=== PATIENT | female | born 1945 | race Caucasian/White ===

== ENCOUNTER 2020-10-24 12:41 | Inpatient (IN) | payer MEDICARE, SELFPAY ==
[2020-10-24] VITALS (14 sets, daily range): BP systolic 108–180; BP diastolic 52–111; PULSE 58–79; RESP 12–18; TEMP 36.4–37.6; O2SAT 95–100; BMI 24.8
--- NOTE | 2020-10-24 14:11 | ED.EXTPRO ---
HPI - Extremity Problem General Chief complaint: Extremity Problem,Nontraumatic Stated complaint: infection in knee. Dr Centeno sent you Time Seen by Provider: 10/24/20 14:08 Source: patient Mode of arrival: Wheelchair Limitations: no limitations History of Present Illness HPI Narrative: This is a 75-year-old female who is sent by Dr. Centeno for septic joint. Patient had aspiration on Tuesday, 2 days prior in the office and result came back positive. Asked for patient to be admitted under him. To hold on antibiotics until she is in the OR and she has washout and samples and he will initiate antibiotics. He does ask for initial labs, access and plan for OR today with patient NPO here in the department. Patient herself states she has had symptoms for several months she has had swelling, pain, no obvious redness that she is appreciated but does feel warm it time. She denies any fevers. She denies any other symptoms. Patient is allergic to Januvia. She states she has had several aspirations of her knee. She denies any chest pain, shortness of breath, no cold cough or congestion, no other GI or urinary symptoms. No numbness, tingling of her extremity. She does find that her knee is more painful when not elevated. Related Data Allergies Allergy/AdvReac Type Severity Reaction Status Date / Time sitagliptin [From Januvia] Allergy Verified 10/24/20 17:27 Review of Systems Review of Systems ROS Unobtainable: All systems reviewed & are unremarkable except as noted in HPI and below Patient History Medical History Acid reflux Diabetes Hyperlipidemia Hypertension Social History household members: spouse Smoking Status: Former smoker alcohol intake: current Smoking Status: Unknown if ever smoked alcohol intake frequency: holidays/special occasions only Substance Use Type: does not use Exam Narrative Exam Narrative: GENERAL: Alert and oriented x three, female in moderate distress. HEENT: Head normocephalic, atraumatic, EOMI, pupils reactive, face symmetric, moist mucous membranes NECK: Supple, full range of motion CARDIOVASCULAR: Regular rate and rhythm without murmurs, rubs or gallops. RESPIRATORY: Breath sounds equal bilaterally, no wheezes rales or rhonchi. ABDOMEN: Soft, nontender. Normoactive bowel sounds all 4 quadrants. No guarding or rebound, rigidity, no mass : No CVA tenderness EXTREMITIES: Decreased range of motion of right knee patient does not have any erythema but she does have swelling of the knee. She has some mild warmth. There is an effusion with swelling of her right knee. There is a healing scab where she had needle aspiration., no clubbing noted. Neurovascularly intact. Cap refill less than 2 seconds. Sensation intact. NEUROLOGICAL: Cranial nerves II through XII grossly intact. Moving all extremities SKIN: Warm, dry, no petechiae, no rashes or lesions. Initial Vital Signs Initial Vital Signs: Vital Signs Temperature 97.8 F 10/24/20 12:55 Pulse Rate 79 10/24/20 12:55 Respiratory Rate 14 10/24/20 12:55 Blood Pressure 131/62 10/24/20 12:55 Pulse Oximetry 97 10/24/20 12:55 Course Orders Ordered: ED Orders 10/24/20 13:11 C-Reactive Protein Quant Stat Complete Blood Count AUTO DIFF Stat Comprehensive Metabolic Panel Stat Erythrocyte Sedimentation Rate Stat Procalcitonin Stat Prothrombin Time INR Stat 10/24/20 14:29 EKG-12 Lead Stat Acetaminophen (Acetaminophen 325 Mg Tablet) 975 mg PO TID [facility] Last Admin: 10/24/20 21:17 Dose: 975 mg Documented by: ASHA Aspirin (Aspirin Ec 81 Mg Tablet) 81 mg PO BID [facility] Last Admin: 10/24/20 21:17 Dose: 81 mg Documented by: ASHA Bisacodyl (Bisacodyl 10 Mg Supp) 10 mg IA PRN PRN PRN Reason: Constipation Cefazolin Sodium (Cefazolin 1 Gm Vial) 2 gm IV Q8H [facility] Stop: 10/25/20 11:01 Lactated Ringer's (Lactated Ringers) 1,000 mls @ 125 mls/hr IV CONT [facility] Last Admin: 10/24/20 21:17 Dose: 125 mls/hr Documented by: ASHA Insulin Human Lispro (Insulin Lispro 100 Unit/Ml 3ml Vial) 0 unit SUBCUT Q6HR [facility]; Protocol Naloxone HCl (Naloxone 0.4 Mg/Ml Vial) 0.2 mg IV Q2MIN PRN PRN Reason: Opiate Reversal Ondansetron HCl (Ondansetron 4 Mg Odt) 4 mg PO Q4HR PRN PRN Reason: Nausea And Vomiting Oxycodone HCl (Oxycodone Ir 5 Mg Tablet) 5 mg PO Q3HR PRN PRN Reason: Pain, Moderate (4-6) Polyethylene Glycol (Polyethylene Glycol 3350 17 Gm Powd.Pack) 17 gm PO DAILY KEHINDE Discontinued Medications Acetaminophen (Acetaminophen 325 Mg Tablet) 975 mg PO NOW ONE Stop: 10/24/20 14:51 Last Admin: 10/24/20 14:59 Dose: 975 mg Documented by: FABIANO Bupivacaine HCl/Epinephrine Bitart (Bupivacaine 0.25% W/ Epi 30 Ml Vial) 30 ml INJ NOW ONE Stop: 10/24/20 19:09 Last Admin: 10/24/20 19:00 Dose: 4 ml Documented by: RUI Cefazolin Sodium (Cefazolin 1 Gm Vial) 2 gm IV NOW ONE Stop: 10/24/20 18:37 Last Admin: 10/24/20 18:25 Dose: 2 gm Documented by: LIZBETH Sodium Chloride (Normal Saline 0.9%) 1,000 mls @ 150 mls/hr IV CONT [facility] Last Infusion: 10/24/20 19:50 Dose: 0 mls/hr Documented by: Admin: 10/24/20 15:00 Dose: 150 mls/hr Documented by: FABIANO Lactated Ringer's (Lactated Ringers) 1,000 mls @ 42 mls/hr IV CONT [facility] Last Admin: 10/24/20 17:03 Dose: 42 mls/hr Documented by: SAYDA Vancomycin HCl (Vancomycin) 1,000 mg in 200 mls @ 200 mls/hr IV NOW ONE Stop: 10/24/20 18:44 Last Infusion: 10/24/20 19:51 Dose: 0 mls/hr Documented by: Admin: 10/24/20 18:24 Dose: 200 mls/hr Documented by: YARED Vancomycin HCl (Vancomycin) 1,000 mg in 200 mls @ 200 mls/hr IV Q12H [facility] Stop: 10/24/20 21:17 Last Admin: 10/24/20 21:17 Dose: 200 mls/hr Documented by: ASHA Oxycodone HCl (Oxycodone Ir 5 Mg Tablet) 5 mg PO NOW ONE Stop: 10/24/20 19:35 Last Admin: 10/24/20 19:44 Dose: 5 mg Documented by: GRANT Lepe Consultation #1: Dr. Centeno, called and informed me that patient was sent to the emergency department with plan for admission to himself for septic joint he asked that we do not start antibiotics until she is in the and OR. NPO with plan for admission inpatient under Dr. Centeno. Vital Signs Vital signs: Vital Signs - 8 hr 10/24/20 12:55 Temperature 97.8 F Pulse Rate 79 Respiratory Rate 14 Blood Pressure 131/62 Pulse Oximetry 97 MDM - Extremity (Nontraumatic) Lab Data Result diagrams: 10/24/20 13:11 10/24/20 13:11 Labs: Lab Results 10/24/20 10/24/20 10/24/20 Range/Units 13:11 13:11 13:11 WBC 12.8 H (4.5-11.0) X10^3/uL RBC 3.76 L (4.0-5.2) X10^6/uL Hgb 10.6 L (12.0-16.0) g/dL Hct 32.8 L (36-46) % MCV 87.2 (80-100) fL MCH 28.2 (26-34) PG MCHC 32.3 (30-36) % RDW 13.5 (11.6-14.8) % Plt Count 653 H (150-400) X10^3/uL Neut % (Auto) 75.4 H (50-75) % Lymph % (Auto) 16.4 L (25-40) % [place] % (Auto) 7.4 (3-14) % Eos % (Auto) 0.3 L (2-4) % Baso % (Auto) 0.5 (0-2) % Neut # (Auto) 9700 H (9653-8486) /uL Lymph # (Auto) 2100 (7956-4521) /uL [place] # (Auto) 1000 H (0-900) /uL Eos # (Auto) 0 (0-450) /uL Baso # (Auto) 100 (0-100) /uL ESR 112 H (0-20) MM/HR PT 12.0 (10.1-12.7) SECONDS INR 1.1 (0.9-1.3) Sodium 136 L (137-145) mmol/L Potassium 4.9 (3.4-5.1) mmol/L Chloride 100 (98-107) mmol/L Carbon Dioxide 26 (22-32) mmol/L BUN 30 H (7-17) mg/dL Creatinine 1.12 H (0.52-1.04) mg/dL Estimated GFR 47.2 L (>60) mL/min BUN/Creatinine Ratio 26.8 H (6-22) Glucose 208 H (80-110) mg/dL Calcium 10.4 H (8.4-10.2) mg/dL Total Bilirubin 0.4 (0.2-1.3) mg/dL AST 19 (14-36) IU/L ALT 14 (<35) IU/L Alkaline Phosphatase 88 (38-126) U/L C-Reactive Protein 11.8 H (<1.0) mg/dL Total Protein 7.6 (6.3-8.2) g/dL Albumin 3.9 (3.5-5.0) g/dL Globulin 3.7 (1.7-4.1) g/dL Albumin/Globulin Ratio 1.1 (1.0-2.8) Procalcitonin 0.09 (<0.5) ng/mL ECG Data Attestation EKG: I personally reviewed and interpreted this ECG as follows: Prior ECG tracings: not available for review Interpretation: Sinus rhythm inversion in 2 3 AVF with elevation in V1 through V3. No priors for comparison. Rate of 70 IA 164 QRS of 136 and QTC 440. MDM Narrative Medical decision making narrative: This is a 75-year-old female sent to the emergency department in the setting of chronic swelling and pain in her right knee with positive aspiration by Dr. Centeno as an outpatient patient had screening EKG which does show T-wave changes but patient is asymptomatic with no priors for comparison. Patient's does show changes consistent with septic arthritis with elevation of CRP and ESR. Patient has a slightly elevated creatinine. She request Tylenol here for pain. She is febrile does not appear septic. Antibiotics were deferred until she been in the OR for cultures as per Dr. Centeno for washout. She is NPO at this time. Discharge Plan Departure Patient Disposition: Admitted As Inpatient Clinical Impression: Septic joint Qualifiers: Septic arthritis location: knee Admit Date/Time: 10/24/20 14:35 Admit Provider: Wade Centeno
[2020-10-24] MEDS: ACETAMINOPHEN 325 MG TABLET 975 MG PO ×2 (14:59→21:17)
[2020-10-24] MEDS: SODIUM CHLORIDE 0.9% 1,000 ML 150 ML IV (15:00)
--- NOTE | 2020-10-24 15:15 | PC.NURSE ---
Notified pt of NPO status, understanding verbalized.
[2020-10-24 15:20] LABS: Add Manual Diff / Slide Review NO; Basophils Absolute Auto 100 /uL (0-100); Basophils Percent Auto 0.5 % (0-2); Eosinophils Absolute Auto 0 /uL (0-450); Eosinophils Percent Auto 0.3 % (2-4); Hematocrit 32.8 % (36-46); Hemoglobin 10.6 g/dL (12.0-16.0); Lymphocytes Absolute Auto 2100 /uL (1100-4500); Lymphocytes Percent Auto 16.4 % (25-40); Mean Corpuscular HGB Conc 32.3 % (30-36); Mean Corpuscular Hemoglobin 28.2 PG (26-34); Mean Corpuscular Volume 87.2 fL (80-100); Monocytes Absolute Auto 1000 /uL (0-900); Monocytes Percent Auto 7.4 % (3-14); Neutrophils Absolute Auto 9700 /uL (1500-7000); Neutrophils Percent Auto 75.4 % (50-75); Platelet Count 653 X10^3/uL (150-400); Red Blood Cell Count 3.76 X10^6/uL (4.0-5.2); Red Cell Distribution Width 13.5 % (11.6-14.8); White Blood Cell Count 12.8 X10^3/uL (4.5-11.0)
[2020-10-24 15:28] LABS: INR 1.1 (0.9-1.3)
[2020-10-24 15:39] LABS: Alanine Aminotransferase 14 IU/L (<35); Albumin 3.9 g/dL (3.5-5.0); Albumin Globulin Ratio 1.1 (1.0-2.8); Alkaline Phosphatase 88 U/L (38-126); Aspartate Aminotransferase 19 IU/L (14-36); BUN Creatinine Ratio 26.8 (6-22); Bilirubin Total 0.4 mg/dL (0.2-1.3); Blood Urea Nitrogen 30 mg/dL (7-17); Calcium 10.4 mg/dL (8.4-10.2); Carbon Dioxide 26 mmol/L (22-32); Chloride 100 mmol/L (98-107); Estimated Glomerular Filt Rate 47.2 mL/min (>60); Globulin 3.7 g/dL (1.7-4.1); Glucose 208 mg/dL (80-110); HEMOLYSIS < 15 (0-50); Potassium 4.9 mmol/L (3.4-5.1); Sodium 136 mmol/L (137-145); Total Protein 7.6 g/dL (6.3-8.2)
[2020-10-24 15:45] LABS: Erythrocyte Sedimentation Rate 112 MM/HR (0-20)
[2020-10-24 15:49] LABS: C-Reactive Protein Quant 11.8 mg/dL (<1.0)
[2020-10-24 15:51] LABS: Procalcitonin 0.09 ng/mL (<0.5)
[2020-10-24 16:03] LABS: COVID19 -Nasal RAPID Negative (Negative)
--- NOTE | 2020-10-24 16:07 | PC.NURSE ---
Transfer to PACU to await for surgery
[2020-10-24] MEDS: LACTATED RINGERS 1,000 ML 42 ML IV (17:03)
--- NOTE | 2020-10-24 17:11 | PM.HP.1 ---
History of Present Illness History of Present Illness Date Patient Seen: 10/24/20 Time Patient Seen: 17:11 Date of Onset of Symptoms: 10/16/20 Chief complaint: infection in knee. Dr Alba sent you Narrative: Patient is a 65-year-old female who has had intermittent right knee pain since April. She has had several ER visits since that time. Previous aspirations of the knee did not demonstrate any infection. She has had about 5 aspiration since initially having knee pain back in April. Last week I provided a Orthovisc injection she had worsening pain at the visit on Tuesday. I aspirated her right knee and send it for Synovasure analysis. This returned today showing staph infection. I called this morning to learn presented on Hospital ER for irrigation debridement of right septic knee. Patient History Family & Social History Social History: household members spouse Safety & Behavioral: Feels Safe in Current Yes Environment Been Physically Hurt or No Threatened By a Person Tobacco & Substance use: Smoking Status Former smoker alcohol intake frequency holiday/special occasion Substance Use Type does not use Meds Home Medications and Allergies Allergies Allergy/AdvReac Type Severity Reaction Status Date / Time sitagliptin [From Januvia] Allergy Verified 10/24/20 12:54 Exam Vital Signs (past 8 hours): - 10/24/20 12:55 10/24/20 15:41 10/24/20 16:57 Temperature 97.8 F 98.2 F 99.6 F Pulse Rate 79 63 66 Respiratory Rate 14 16 16 Blood Pressure 131/62 139/67 140/60 Pulse Oximetry 97 100 99 Oxygen Delivery Method Room Air Narrative Exam Narrative: Right knee large effusion. Range of motion 5? short of full extension to 90? of flexion. Painful range of motion. No erythema or drainage. Objective Labs Result Diagrams: 10/24/20 13:11 10/24/20 13:11 Labs: Laboratory Results - last 24 hr 10/24/20 10/24/20 10/24/20 13:11 13:11 13:11 WBC 12.8 H RBC 3.76 L Hgb 10.6 L Hct 32.8 L MCV 87.2 MCH 28.2 MCHC 32.3 RDW 13.5 Plt Count 653 H Neut % (Auto) 75.4 H Lymph % (Auto) 16.4 L [place] % (Auto) 7.4 Eos % (Auto) 0.3 L Baso % (Auto) 0.5 Neut # (Auto) 9700 H Lymph # (Auto) 2100 [place] # (Auto) 1000 H Eos # (Auto) 0 Baso # (Auto) 100 ESR 112 H PT 12.0 INR 1.1 Sodium 136 L Potassium 4.9 Chloride 100 Carbon Dioxide 26 BUN 30 H Creatinine 1.12 H Estimated GFR 47.2 L BUN/Creatinine Ratio 26.8 H Glucose 208 H Calcium 10.4 H Total Bilirubin 0.4 AST 19 ALT 14 Alkaline Phosphatase 88 C-Reactive Protein 11.8 H Total Protein 7.6 Albumin 3.9 Globulin 3.7 Albumin/Globulin Ratio 1.1 Procalcitonin 0.09 SARS-CoV-2 (PCR) 10/24/20 14:55 WBC RBC Hgb Hct MCV MCH MCHC RDW Plt Count Neut % (Auto) Lymph % (Auto) [place] % (Auto) Eos % (Auto) Baso % (Auto) Neut # (Auto) Lymph # (Auto) [place] # (Auto) Eos # (Auto) Baso # (Auto) ESR PT INR Sodium Potassium Chloride Carbon Dioxide BUN Creatinine Estimated GFR BUN/Creatinine Ratio Glucose Calcium Total Bilirubin AST ALT Alkaline Phosphatase C-Reactive Protein Total Protein Albumin Globulin Albumin/Globulin Ratio Procalcitonin SARS-CoV-2 (PCR) Negative Assessment & Plan Assessment & Plan narrative: Patient is a 75-year-old female with right knee septic arthritis. This was confirmed by Synovasure aspiration. I called this morning told to present to an Hospital ER. She is here today for arthroscopic irrigation debridement of her right knee with possible open irrigation debridement. Plan will be for washout in the OR followed by placement of Hemovac drain and broad-spectrum antibiotics until susceptibilities are known. Need 6 weeks of IV antibiotics. -OCTOR -nonweightbearing right lower extremity -hold antibiotics
--- NOTE | 2020-10-24 17:28 | SUR.HOLD ---
PT DOES NOT KNOW NAMES OF MEDS - GLIPIZDE, LANTUS, OMEPRIZOLE, ATORVASTATIN, LOSARTAN BABY ASPIRIN,MVI,
--- NOTE | 2020-10-24 17:38 | SUR.HOLD ---
LANTUS OMEPRAZOLE GLIPIZIDE LOSARTAN HYPERLIPIDEMIA ATORVASTATIN
--- NOTE | 2020-10-24 17:41 | SUR.HOLD ---
BELONGINGS IN BAG AND WEDDING RINGS SECURED WITH BAND-AIDS
--- NOTE | 2020-10-24 17:48 | SUR.HOLD ---
arrives and takes wedding set.
[2020-10-24] MEDS: VANCOMYCIN 1,000 MG/200 ML PIGGYBACK 200 MG IV ×2 (18:24→21:17)
[2020-10-24] MEDS: CEFAZOLIN 1 GM VIAL 2 GM IV (18:25)
--- NOTE | 2020-10-24 18:29 | SUR.OPER ---
Supine on padded OR bed, head on pillow, arms secured on padded arm boards at <90 degrees abduction, legs uncrossed, right leg is in lateral brace and under control of surgeon,safety belt at pelvis, tape over blanket over left lower leg.
[2020-10-24] MEDS: BUPIVACAINE 0.25% W/ EPI 30 ML VIAL INJ (19:00)
--- NOTE | 2020-10-24 19:13 | PM.OP.1 ---
Operative Date/Time/Diagnoses Date of procedure: 10/24/20 Time of procedure: 19:13 Pre-op diagnosis: septic arthritis right knee Post-op diagnosis: same Procedure & Clinicians Procedure: Arthroscopic irrigation debridement right knee Same procedure as scheduled: Yes Indications: Septic arthritis Surgeon: Wade Alba Click Yes if Unassisted: Yes Anesthesia Type: General Operative Notes Findings: Synovitis and cloudy synovial fluid Closure Type: primary Specimen(s): other (2x cultures) Estimated Blood Loss (mL): 20 Tourniquet time (min): 35 Procedure in detail: Patient was met in the preoperative holding area where the site and side of surgery marked by . She had been seen in clinic 2 days prior there was concern for septic arthritis right knee was aspirated sent for Synovasure analysis this came back concerning for staphylococcal infection. She was told to present on Hospital ER. She was met through the ER. I reviewed informed consent with around preoperative holding area including the risks and benefits of surgery. After informed consent patient signed the consent. Patient was then brought back to operating room where she was induced under general anesthesia. A nonsterile tourniquet was then placed in the right thigh the right lower extremity then prepped and draped normal sterile fashion. The right knee was aspirated and this aspiration was sent for culture as well as antibiotic sensitivities. At this point antibiotics were started which was 2 g Ancef 1 g of vancomycin. Once Ancef was completely infused the right lower extremity tourniquet was then inflated without using the Esmarch. A standard anterolateral portal was then made and a diagnostic arthroscopy was performed verifying significant synovitis and cloudy synovial fluid. A anteromedial portal was then placed and a arthroscopic shaver was placed through this portal and synovectomy was then performed. A repeat diagnostic arthroscopy was then performed followed by washing of the joint with 9 L of normal saline in total without any further cloudy synovial fluid encountered. Once this was completed the instruments were removed from the joint. A Hemovac drain was then placed. Portal sites were then closed with nylon followed by Webril followed by a Yossi bandage. Complications: none Post-operative Condition: stable Disposition: PACU Plan for aftercare: Broad-spectrum IV antibiotics until bacterial sensitivities are completed, nonweightbearing right lower extremity until drain is removed, aspirin 81 mg b.i.d. until mobilizing.
[2020-10-24] MEDS: OXYCODONE IR 5 MG TABLET PO ×2 (19:44→23:08)
--- NOTE | 2020-10-24 20:06 | SUR.PHASEI ---
REPORT GIVEN TO CALLIE HAYNES BY PHONE, ALL QUESTIONS ANSWERED TO SATISFACTION. PATIENT BROUGHT UP TO RM 204 WITH ALL BELONGINGS. BED DOWN IN LOCKED POSITION. SCD'S ON. CALL LIGHT IN REACH. CALLIE HAYNES ARRIVED AT BEDSIDE FOR FACE TO FACE HANDOFF, AFTER CHECKING DRSG, HV, CMS AND VS TOGETHER.
[2020-10-24 21:11] LABS: C-Reactive Protein Quant 12.1 mg/dL (<1.0)
[2020-10-24] MEDS: LACTATED RINGERS 1,000 ML 125 ML IV (21:17)
[2020-10-24] MEDS: ASPIRIN EC 81 MG TABLET PO (21:17)
--- NOTE | 2020-10-24 22:28 | PC.ADMIT ---
[address] [place] [address] Admission Note: Patient admitted to floor from PACU at 20:00 transferred by bed. Patient alert and oriented, able to make her needs known. Patient oriented to room and shown how to use call light. Brakes on bed are locked. The patient,Penny Babin,75 y/o, was given written information regarding hospital policies, unit procedures and contact persons. Patient's smoking status: Former smoker. Vital Signs - 8 hr 10/24/20 15:41 10/24/20 16:57 10/24/20 19:08 Temperature 98.2 F 99.6 F 98.1 F Pulse Rate 63 66 65 Respiratory Rate 16 16 12 Blood Pressure 139/67 140/60 167/53 H Pulse Oximetry 100 99 100 10/24/20 19:13 10/24/20 19:18 10/24/20 19:23 Temperature Pulse Rate 64 66 60 Respiratory Rate 14 14 18 Blood Pressure 108/67 158/64 H 174/59 H Pulse Oximetry 98 98 99 10/24/20 19:38 10/24/20 19:49 10/24/20 20:00 Temperature 98.7 F 97.6 F Pulse Rate 64 58 L 64 Respiratory Rate 16 16 13 Blood Pressure 149/111 H 180/52 H 178/68 H Pulse Oximetry 99 98 98 10/24/20 20:30 10/24/20 21:00 Temperature 98.0 F 97.5 F L Pulse Rate 70 65 Respiratory Rate 15 14 Blood Pressure 130/63 145/59 H Pulse Oximetry 95 95
[2020-10-24 22:42] LABS: COVID19 - ADMIT (NP swab/PCR) Negative (Negative)
[2020-10-25] VITALS (12 sets, daily range): BP systolic 114–179; BP diastolic 48–67; PULSE 64–74; RESP 14–18; TEMP 36.1–36.6; O2SAT 95–98
--- NOTE | 2020-10-25 01:33 | PC.NURSE ---
Patient reports taking home medications but cannot recall names or doses with reasonable confidence. This RN requested a list of medication be brought in at family's convenience.
[2020-10-25] MEDS: CEFAZOLIN 1 GM VIAL 2 GM IV ×2 (03:08→11:44)
[2020-10-25] MEDS: OXYCODONE IR 5 MG TABLET PO ×5 (03:19→19:56)
[2020-10-25] MEDS: LACTATED RINGERS 1,000 ML 125 ML IV (06:38)
[2020-10-25 06:53] LABS: Hematocrit 28.8 % (36-46); Hemoglobin 9.6 g/dL (12.0-16.0); Mean Corpuscular HGB Conc 33.5 % (30-36); Mean Corpuscular Hemoglobin 29.4 PG (26-34); Mean Corpuscular Volume 87.8 fL (80-100); Platelet Count 581 X10^3/uL (150-400); Red Blood Cell Count 3.28 X10^6/uL (4.0-5.2); Red Cell Distribution Width 13.8 % (11.6-14.8); White Blood Cell Count 10.2 X10^3/uL (4.5-11.0)
[2020-10-25] MEDS: ACETAMINOPHEN 325 MG TABLET 975 MG PO ×3 (08:57→20:56)
[2020-10-25] MEDS: polyethylene glycoL 3350 17 GM POWD.PACK PO (08:57)
[2020-10-25] MEDS: INSULIN LISPRO 100 UNIT/ML 3ML VIAL SUBCUT ×4 (09:00→21:06)
[2020-10-25] MEDS: ASPIRIN EC 81 MG TABLET PO ×2 (09:00→20:56)
--- NOTE | 2020-10-25 09:25 | CM.DANOTE ---
Addendum entered by Vanessa Poole R.N. 10/25/20 13:37: Confirmed primary care provider is Nai Godwin, physician diagnostic assistant at [facility]. Called [facility] and spoke to Haydee about referral. Faxed over face sheet, face to face, H&P. Addendum entered by Vanessa Poole R.N. 10/25/20 13:16: Faxed referral over to [facility], IV medication is not yet known. Brought in a Medicare Choice List and discussed home health agencies. They stated, [facility] may be the best, they are based in [place]. They are also listed on the calender for this week. Mentioned that home health can include home therapy, and weekly nursing visits for PICC dressing changes, and labs if needed. Will go ahead and fax [facility] over the referral as well. Have face to face already signed by ortho. Addendum entered by Vanessa Poole R.N. 10/25/20 12:13: Spoke to aamdor Rubalcava MD, who confirmed that patient will need to be on IV medications for 6 weeks. He indicated that patient would most likely want to go home, versus going to skilled rehab. Checked in with patient and , Kishor. Discussed options of going home with [facility] and home health, including nursing for weekly dressing changes for PICC line, and home therapy. Patient and , feel that they can manage the home IVs as long as they are taught. Let patient and know that [facility] would do the teach back, either here in the hospital, or the home setting. Per Dr. Alba, it is still unclear as to what patient will be on, secondary to awaiting cultures. Let her and patient know that [facility] would be running this by insurance to see what their co-payment is. May attempt to get in touch with [facility] today. Original Note: DCP: Case received, EMR reviewed and met with patient. Introduced self and role. Was able to obtain information from patient her baseline activity status prior to her surgery. DCP assessment completed with information currently available. Patient is a 75 year old female who admitted yesterday afternoon to the care of the orthopedic team. Ortho: Dr. Alba. Payer: confirmed: [employer] Medicare. Patient came to the hospital for a surgical procedure. She was sent by the orthopedic office after an aspiration of her knee was done on Tuesday. She had knee surgery some months ago, and is here for arthroscopic irrigation and debridement of her right knee. She had this procedure done yesterday, secondary to infection. Met with patient in her room. She was sitting up in bed, pleasant, having her breakfast. She is alert and oriented. Her and her spouse, Kishor, reside in [place]. Patient indicated that she had her knee surgery months ago, and had been developing some swelling and pain. She has a walker for home use, has not been driving. She also indicated, her is very supportive, has been helping with meals. She also indicated that she has a neighbor that she may ask to help with some hand icer as well. P: DCP to continue to follow for any needs. Will see how she does with the therapy team, and will assess if patient will need to be on an extended time of IV ABO. Vanessa Poole RN/Manager Performance Improvement
--- NOTE | 2020-10-25 09:48 | PT.IIE ---
Current Diagnoses Arthritis due to other bacteria, right knee (10/24/20) Surgery Performed Operation Date: 10/24/20 17:30 Actual Procedures p Arthroscopy I&D of Knee(Right) - Wade Alba MD Medical History (Last Reviewed 10/28/20 @ 07:26 by Sisi Antoine PA-C) Acid reflux Diabetes Hyperlipidemia Hypertension Physical Therapy Inpatient Evaluation/Re-Eval M1 PT/OT-IP Prior Functional Status Start: 10/25/20 12:21 Freq: NEEDED Status: Active Protocol: Document 10/28/20 08:00 AB (Rec: 10/25/20 12:42 AB [id number]) Medical Review Prior Functional Status Medical History Reviewed Yes Communication able to make needs known Mobility and Gait pt stated that she is independent with all mobilities and ambulation without AD Social History Household Members spouse Living Arrangements House Number of Floors (Floors) One Floor Number of Stairs To Enter/Railing? 4 steps L rail to enter from the garage 5 steps B rails from the back deck 6 steps 1 rail from the front Home Environment Standard Height Toilet,Walk in Shower,Tub/Shower Home Equipment Grab Bars In Shower Additional Social History Comment pt stated that she has been sleeping on a recliner for ~ 1 week due to knee pain M2 PT-IP Current Condition Start: 10/25/20 12:21 Freq: NEEDED Status: Active Protocol: Document 10/28/20 08:00 AB (Rec: 10/25/20 12:42 AB [email or web address]) Physical Therapy Current Condition Current Condition Evaluation Date 10/25/20 Treatment Diagnosis R knee sepsis s/p irrigation debridement; difficulty in walking Onset Date 10/24/20 Weight Bearing Status Weight Bearing Status Non-Weight Bearing Allowed Weight Bearing Amount (enter % RLE NWB or #) (%) M3 PT-IP Subjective Start: 10/25/20 12:21 Freq: NEEDED Status: Active Protocol: Document 10/28/20 08:00 AB (Rec: 10/25/20 12:42 AB [id number]) Subjective Physical Therapy Visit Type Type Initial Evaluation Visit Start Time 09:48 Visit Stop Time 10:22 Total Visit Minutes 35 Number of MANAGER SAS Visits 0 Physical Therapy Visit Comments Patient Comments pt is agreeable to do PT Therapy Pain Assessment Pain When Pain Assessed At Rest Pain Present Pain Present Pain Reported Location Right Knee Intensity 8 Scale Used Numeric (0 - 10) Pain Behaviors Facial Grimacing,Guarding, Holding Area,Moaning,Wincing Pain Management Techniques Distraction,Modification of Treatment,Re-positioning, Timing of Activity with Medications M4 PT-IP Mobility and Gait Start: 10/25/20 12:21 Freq: NEEDED Status: Active Protocol: Document 10/28/20 08:00 AB (Rec: 10/25/20 12:42 AB [id number]) PT-Bed Mobility Assessment Supine to Sit Supine to Sit Standby Assistance,Head of Bed Elevated Sit to Supine Sit to Supine Standby Assistance,Head of Bed Elevated PT-Transfer Assessment Sit to and From Stand Sit to and from Stand Contact Guard Assistance, Minimal Assistance,1 Person Assistance,Use of Upper Extremities Equipment Transfer Assistive Device Gait Belt,Front Wheeled Walker Orthotic/Prosthetic Devices or Brace: No Transfers Transfer Destination Bedside Commode Transfer Technique Stand Step Pivot Transfer Ability Level of Assist Contact Guard Assistance, Minimal Assistance,1 Person Assistance,Use of Upper Extremities Comments Mobility Comments pt supine in bed and requesting to use the toilet. informed pt regarding NWB RLE and understood. pt completed supine to sit HOB elevated SBA. pt was able to sit on EOB SBA. increase RLE guarding. pt complete sit to stand min A and cues and completed step transfer to bedside commode using FWW min A. pt completed sit to stand from the bedside commode CGA and step transfer to EOB CGA. c/o increase RLE pain but agreed to do ambulation. completed sit to stand from EOB CGA to min A and ambualted ~ 10 ft using FWW CGA to Abbi . min A towards end of ambulation with c/o fatigue. pt is able to maintain NWB on RLE. completed sit to supine SBA with HOB elevated. positioned pt in bed. call light and table placed within reach. Gait Assessment Gait Gait Assistance Required: Contact Guard Assist,Minimum Assistance Distance (Feet) 10 Able to Maintain Weight Bearing Status Yes During Gait Assistive Devices Assistive Device Gait Belt,Front Wheeled Walker Orthotic/Prosthetic Devices or Brace: No Factors Limiting Gait Function Factors Limiting Gait Function Decreased Activity Tolerance, Decreased Strength,Limited Range of Motion,Pain,Poor Balance Comments Gait Comments pls refer to mobility section for details PT-Balance Assessment Sitting Balance and Reactions Static Sitting Balance Ability Good Dynamic Sitting Balance Ability Good Standing Balance and Reactions Static Standing Balance Ability Fair Dynamic Standing Balance Ability Fair Device Used FWW M5 PT-IP Objective Assessments Start: 10/25/20 12:21 Freq: NEEDED Status: Active Protocol: Document 10/28/20 08:00 AB (Rec: 10/25/20 12:42 AB [id number]) Orientation Orientation/Cognition Level of Alertness Alert Orientation Name,Place,Situation Language Function Ability Hard of Hearing Safety Awareness Understands Safety Issues Memory Description No Deficits Noted Gross Range of Motion Lower Extremity ROM Assessment Right Impaired Impairments pain limiting movement Strength Lower Extremity Strength Assessment Right Impaired Comments Strength Comments pain limiting mobility on RLE Sensation Assessment Sensation Gross Sensation WNL Muscle Tone Muscle Tone WNL Yes M6 PT-IP Treatment Start: 10/25/20 12:21 Freq: NEEDED Status: Active Protocol: Document 10/28/20 08:00 AB (Rec: 10/25/20 12:42 AB [id number]) Physical Therapy Treatment Education Education Provided Weight Bearing Status,Safety M7 PT-IP Assessment and Plan Start: 10/25/20 12:21 Freq: NEEDED Status: Active Protocol: Document 10/28/20 08:00 AB (Rec: 10/25/20 12:42 AB [id number]) PT Summary Assessment and Plan Potential Rehabilitation Potential Good Status of Condition at Evaluation Evolving Summary Impairments Pain,ROM,Strength,Balance, Coordination,Sensation,Bed Mobility,Transfers,Gait, Activity Tolerance Assessment Summary pt requiring CGA to min A with mobility using FWW but with c /o increase knee pain and has decrease activity tolerance affecting independence. informed pt regarding DME needs ( FWW, shower chair, grab bars, w/c) and a ramp to enter the house. pt stated that she is going to ask her spouse. will continue to assess progress for safe d/c plan. Goals Bed Mobility Goal Independent Transfer Goal Independent,Front Wheeled Walker Gait Goal Independent,Front Wheel Walker Gait Distance 50 Other Goals up/down 5 steps B rails CGA Days to Meet Goals 10 Frequency of Treatment Frequency Of Treatment Once a Day Treatment Plan Physical Therapy Treatment Plan Bed Mobility Training,Transfer Training,Gait Training, Therapeutic Exercise,Balance Retraining,Post Op Education, Discharge Planning,Hot or Cold Pack,Neuromuscular Re-ed, Coordination Retraining,Manual Therapy Precautions Other Precautions NWB RLE Recommendations To Nursing Amount of Assist Needed 1 Person Assist Discharge Recommendations PT Discharge Recommendations Home with Assistance,Home Health,SNF Rehab,Home vs SNF Equipment Needed for Home Before FWW Discharge Transportation Needs at Discharge Private Vehicle,Wheelchair/ Cabulance
--- NOTE | 2020-10-25 10:06 | P.PN_ITS ---
Subjective Subjective Date Patient Seen: 10/25/20 Time Patient Seen: 10:06 Interval history: Patient states she is doing well overall but is in moderate discomfort at rest. At this time patient denies fever, chills, nausea, chest pain, shortness of breath, or urinary retention. She reports good sensation throughout the bilateral lower extremities. She does note that she has pain primarily around the right knee, but notes that she also has tenderness in the proximal of her right leg. Exam Vital Signs (past 8 hours): - 10/25/20 06:00 10/25/20 08:00 Temperature 97.0 F L 98 F Pulse Rate 69 64 Respiratory Rate 16 16 Blood Pressure 141/62 H 135/56 L Pulse Oximetry 96 95 Oxygen Delivery Method Room Air Oxygen Flow Rate 0 Narrative Exam Narrative: 75-year-old female postop day 1 status post right arthroscopic irrigation and debridement of septic knee joint. Patient is resting comfortably in bed, is in no acute distress, is alert and oriented x3. Skin is warm, dry, and pink. Wound drain in place draining scant amount of red blood. Good sensation appreciated throughout the bilateral lower extremities light touch. Tenderness to palpation throughout the right proximal thigh extending distally to the proximal 1st half of the right leg. Gross motor function intact thr oughout the bilateral lower extremities. Const General: cooperative, healthy appearing and comfortable Resp Effort & Inspection: normal respiratory effort and able to speak in complete sentences Skin General: no rashes or lesions noted Objective Labs Result Diagrams: 10/25/20 06:40 10/24/20 13:11 Labs: Laboratory Results - last 24 hr 10/24/20 10/24/20 10/24/20 13:11 13:11 13:11 WBC 12.8 H RBC 3.76 L Hgb 10.6 L Hct 32.8 L MCV 87.2 MCH 28.2 MCHC 32.3 RDW 13.5 Plt Count 653 H Neut % (Auto) 75.4 H Lymph % (Auto) 16.4 L [place] % (Auto) 7.4 Eos % (Auto) 0.3 L Baso % (Auto) 0.5 Neut # (Auto) 9700 H Lymph # (Auto) 2100 [place] # (Auto) 1000 H Eos # (Auto) 0 Baso # (Auto) 100 ESR 112 H PT 12.0 INR 1.1 Sodium 136 L Potassium 4.9 Chloride 100 Carbon Dioxide 26 BUN 30 H Creatinine 1.12 H Estimated GFR 47.2 L BUN/Creatinine Ratio 26.8 H Glucose 208 H Calcium 10.4 H Total Bilirubin 0.4 AST 19 ALT 14 Alkaline Phosphatase 88 C-Reactive Protein 11.8 H Total Protein 7.6 Albumin 3.9 Globulin 3.7 Albumin/Globulin Ratio 1.1 Procalcitonin 0.09 SARS-CoV-2 (PCR) 10/24/20 10/24/20 10/24/20 14:55 20:40 21:44 WBC RBC Hgb Hct MCV MCH MCHC RDW Plt Count Neut % (Auto) Lymph % (Auto) [place] % (Auto) Eos % (Auto) Baso % (Auto) Neut # (Auto) Lymph # (Auto) [place] # (Auto) Eos # (Auto) Baso # (Auto) ESR PT INR Sodium Potassium Chloride Carbon Dioxide BUN Creatinine Estimated GFR BUN/Creatinine Ratio Glucose Calcium Total Bilirubin AST ALT Alkaline Phosphatase C-Reactive Protein 12.1 H Total Protein Albumin Globulin Albumin/Globulin Ratio Procalcitonin SARS-CoV-2 (PCR) Negative Negative 10/25/20 06:40 WBC 10.2 RBC 3.28 L Hgb 9.6 L Hct 28.8 L MCV 87.8 MCH 29.4 MCHC 33.5 RDW 13.8 Plt Count 581 H Neut % (Auto) Lymph % (Auto) [place] % (Auto) Eos % (Auto) Baso % (Auto) Neut # (Auto) Lymph # (Auto) [place] # (Auto) Eos # (Auto) Baso # (Auto) ESR PT INR Sodium Potassium Chloride Carbon Dioxide BUN Creatinine Estimated GFR BUN/Creatinine Ratio Glucose Calcium Total Bilirubin AST ALT Alkaline Phosphatase C-Reactive Protein Total Protein Albumin Globulin Albumin/Globulin Ratio Procalcitonin SARS-CoV-2 (PCR) [facility] Medical History Acid reflux Diabetes Hyperlipidemia Hypertension Social History household members: spouse Smoking Status: Former smoker alcohol intake: current Assessment & Plan Post-op Postoperative Procedures: Procedures Operation Date: 10/24/20 17:30 Actual Procedure Side Surgeon p Arthroscopy I&D of Knee Right Wade Alba MD Postoperative day: 1 Postoperative status: doing well Postoperative plan narrative: Patient is to remain nonweightbearing on the right lower extremity well wound drain is in place. Patient can begin weight-bearing on the right lower extremity after the wound drain has been pulled. Awaiting final culture results. Plan to have the patient on IV antibiotics for 6 weeks. IV antibiotic treatment regimen will be chosen based off the final results of right knee culture.
--- NOTE | 2020-10-25 10:35 | PC.NURSE ---
Addendum entered by Janay Augustin R.N. 10/25/20 15:36: PICC placement performed by outside lead injection mold technician. LAC PIV removed. Patient tolerated. Original Note: Patient A/O x 3, VSS, c/o pain 5/10 with reassessment after tylenol and Oxycodone, patient remains NWB on LLE, tolerating transfer to [facility] and now to restroom with therapy. HV compressed and intact. JEFFRY wrap remains intact. Pulses equal bilat. No edema noted. SCD's remains on. Patient reports last BM tuesday, BS active x 4. Call light in reach, patient will call before getting OOB.
[2020-10-25 12:00] LABS: C-Reactive Protein Quant 11.3 mg/dL (<1.0)
--- NOTE | 2020-10-25 14:27 | DI.RAD.S_ITS ---
PROCEDURE: XR CHEST FOR PICC 1V INDICATIONS: PICC Placement COMPARISON: None. FINDINGS: PICC was placed by the intravenous therapy team from the left side. Fluoroscopic spot film demonstrates the tip of PICC projecting to the area of distal SVC. IMPRESSION: Tip of PICC projects to the area of distal SVC. No pneumothorax. Dictated by: Alonzo See M.D. on 10/25/2020 at 15:04 Approved by: Alonzo See M.D. on 10/25/2020 at 15:05
--- NOTE | 2020-10-25 21:33 | PC.NURSE ---
Pt's home meds were reconciled as per discussion with pt. Discussion with Dr. Alba via telephone re pt's elevated blood pressure and blood sugar this evening of 341. Orders were received for evening home meds and adjustment in correction insulin dosing.
[2020-10-25] MEDS: LOSARTAN 25 MG TABLET 75 MG PO (22:43)
[2020-10-25] MEDS: ATORVASTATIN 20 MG TABLET 80 MG PO (22:43)
[2020-10-25] MEDS: carvediloL 3.125 MG TABLET 6.25 MG PO (22:44)
[2020-10-26] VITALS (8 sets, daily range): BP systolic 118–172; BP diastolic 42–76; PULSE 60–86; RESP 16–18; TEMP 36.2–36.9; O2SAT 96–98
[2020-10-26] MEDS: OXYCODONE IR 5 MG TABLET PO ×6 (00:02→23:24)
[2020-10-26] MEDS: INSULIN LISPRO 100 UNIT/ML 3ML VIAL SUBCUT ×3 (08:27→17:15)
[2020-10-26] MEDS: ACETAMINOPHEN 325 MG TABLET 975 MG PO ×3 (08:29→20:32)
[2020-10-26] MEDS: ASPIRIN EC 81 MG TABLET PO ×2 (08:30→20:33)
[2020-10-26] MEDS: carvediloL 3.125 MG TABLET 6.25 MG PO (08:30)
[2020-10-26] MEDS: LOSARTAN 25 MG TABLET 75 MG PO (08:31)
[2020-10-26] MEDS: polyethylene glycoL 3350 17 GM POWD.PACK PO (08:31)
--- NOTE | 2020-10-26 08:45 | PM.PN.1 ---
Subjective Subjective Date Patient Seen: 10/26/20 Time Patient Seen: 08:45 Interval history: Patient is now postop day 2 from arthroscopic irrigation debridement of right knee [place] septic arthritis. She is doing okay. Pain is controlled. She does have some elevated blood sugars will work on lowering her blood sugar. Cultures from intraop are not yet resulted. Continue with broad-spectrum antibiotics. Exam Vital Signs (past 8 hours): - 10/26/20 05:48 10/26/20 06:21 10/26/20 08:00 Temperature 97.2 F L Pulse Rate 86 86 72 Respiratory Rate 16 16 18 Blood Pressure 131/66 172/76 H Pulse Oximetry 96 96 98 Oxygen Delivery Method Room Air Oxygen Flow Rate 0 Narrative Exam Narrative: Neurovascular intact or lower extremity. Dressing in place. Drain was removed at bedside by . Scant drainage. Objective Labs Result Diagrams: 10/25/20 06:40 10/24/20 13:11 Labs: Laboratory Results - last 24 hr 10/25/20 06:40 C-Reactive Protein 11.3 H PFSH Medical History Acid reflux Diabetes Hyperlipidemia Hypertension Social History household members: spouse Smoking Status: Former smoker alcohol intake: current Assessment & Plan Assessment & Plan narrative: Patient is a 75-year-old female with right knee [place] septic arthritis. She is now postop day 2 from irrigation debridement. Drain was removed this morning. She will ultimately need 6 weeks of IV antibiotics. This will be determined based off of intraoperative cultures antibiotic susceptibilities. -continue broad-spectrum antibiotics (ancef and vanc) until intraoperative cultures are resulted -restarted metformin and glipizide for glucose control -on high correction insulin sliding scale -weightbearing as tolerated right lower extremity -patient will require PICC line for long-term IV antibiotics Time Spent With Patient Time with patient: less than 15 minutes
--- NOTE | 2020-10-26 09:09 | CM.DPC ---
DCP Cont: Dr. Alba, orthopedist, came by the case management office. He mentioned that he does not yet have the culture results to determine which antibiotic she should be on, but should know tomorrow. Dr. Alba is ok with home health as well. Called Carol Ann, pharmacist at [facility] to ensure that they have referral, which they do. Updated her on the discharge plan, most likely could be tomorrow. They can run the prescription to her insurance tomorrow, once it is received, to see what her co-payment is. [facility] has referral as well. P: DCP to continue to follow. May most likely have the source identified so she can be put on the proper antibiotic. Did let Carol Ann at [facility] know that patient has PICC line, and most likely will be ready tomorrow. Will contact Conor at [facility] as well. Vanessa Poole RN/Ticket Attendant
[2020-10-26] MEDS: VANCOMYCIN 1,000 MG/200 ML PIGGYBACK 200 MG IV (10:23)
[2020-10-26] MEDS: METFORMIN XR 500 MG TABLET 1000 MG PO ×2 (10:23→17:19)
--- NOTE | 2020-10-26 11:00 | PC.NURSE ---
Patient NWB this AM until DR. Alba removed HV. Patient tolerated. Moderate bleeding noted, reinforced HV site with gauze. JEFFRY wrap and dressing remain intact. +CMS, pulses equal. SCD's on bilaterally. PICC intact, dsg changed at 0930, patient tolerated. Patient voiding, BS active x 4. Report last BM was 10/25. Patient is currently working with PT.
--- NOTE | 2020-10-26 11:17 | PT.IPTN ---
Current Diagnoses Arthritis due to other bacteria, right knee (10/24/20) Surgery Performed Operation Date: 10/24/20 17:30 Actual Procedures p Arthroscopy I&D of Knee(Right) - Wade Alba MD Physical Therapy Treatment Note M2 PT-IP Current Condition Start: 10/25/20 12:21 Freq: NEEDED Status: Active Protocol: Document 10/25/20 09:48 AB (Rec: 10/25/20 12:42 AB [id number]) Physical Therapy Current Condition Current Condition Evaluation Date 10/25/20 Treatment Diagnosis R knee sepsis s/p irrigation debridement; difficulty in walking Onset Date 10/24/20 Weight Bearing Status Weight Bearing Status Non-Weight Bearing Allowed Weight Bearing Amount (enter % RLE NWB or #) (%) M3 PT-IP Subjective Start: 10/25/20 12:21 Freq: NEEDED Status: Active Protocol: Document 10/26/20 11:17 AW (Rec: 10/26/20 12:24 AW [id number]) Subjective Physical Therapy Visit Type Type Treatment Note Visit Start Time 10:53 Visit Stop Time 11:17 Total Visit Minutes 24 Notes WB status updated to WBAT RLE per ortho. Number of ZIGZAG MACHINE OPERATOR Visits 0 Physical Therapy Visit Comments Patient Comments Pt had drain removed from R knee this AM and feels her pain is improved. Therapy Pain Assessment Pain When Pain Assessed At Rest Pain Present Pain Present Pain Reported Location Right Knee Intensity 5 Scale Used Numeric (0 - 10) Pain Behaviors Facial Grimacing,Guarding, Moaning,Wincing Pain Management Techniques Distraction,Modification of Treatment,Re-positioning, Timing of Activity with Medications M4 PT-IP Mobility and Gait Start: 10/25/20 12:21 Freq: NEEDED Status: Active Protocol: Document 10/26/20 11:17 AW (Rec: 10/26/20 12:24 AW [id number]) PT-Bed Mobility Assessment Supine to Sit Supine to Sit Standby Assistance Sit to Supine Sit to Supine Standby Assistance PT-Transfer Assessment Sit to and From Stand Sit to and from Stand Standby Assistance,Contact Guard Assistance,Use of Upper Extremities Equipment Transfer Assistive Device Gait Belt,Front Wheeled Walker Orthotic/Prosthetic Devices or Brace: No Transfers Transfer Destination Bed,Chair Transfer Technique Stand Step Pivot Transfer Ability Level of Assist Standby Assistance,Contact Guard Assistance,Use of Upper Extremities Comments Mobility Comments Pt was lying in bed as PT arrived. She completed supine to sit SBA. PT educated pt on updated WB status and demonstrated off-weighting strategies with FWW. Pt stood from the bed CGA and ambulated around the room a total of 25 feet with FWW SBA to CGA. She transferred to the chair [facility] and then requested return to the bed, transferring CGA. Pt was left with call light and tray table in reach. Gait Assessment Gait Gait Assistance Required: Standby Assistance,Contact Guard Assist Distance (Feet) 25 Able to Maintain Weight Bearing Status Yes During Gait Assistive Devices Assistive Device Gait Belt,Front Wheeled Walker Orthotic/Prosthetic Devices or Brace: No Gait Deviations General Gait Pattern Antalgic,Decreased Stride Length,Decreased Feet Clearance,Flexed Trunk,Step-to Gait Factors Limiting Gait Function Factors Limiting Gait Function Decreased Activity Tolerance, Decreased Strength,Limited Range of Motion,Pain,Poor Balance Comments Gait Comments Pt ambulated with TDWB, keeping her RLE out in front of her with little knee flexion. Educated pt on WBAT and to attempt foot-flat ambulation but pt reported weightbearing too painful. Stair Climbing Assessment Comments Stair Climbing Comments Not assessed this date. Pt states she is considering going up front steps with seated bump when she goes home . Will discuss further next session. PT-Balance Assessment Sitting Balance and Reactions Static Sitting Balance Ability Good Dynamic Sitting Balance Ability Good Standing Balance and Reactions Static Standing Balance Ability Good Dynamic Standing Balance Ability Fair Device Used FWW M5 PT-IP Objective Assessments Start: 10/25/20 12:21 Freq: NEEDED Status: Active Protocol: Document 10/25/20 09:48 AB (Rec: 10/25/20 12:42 AB [id number]) Orientation Orientation/Cognition Level of Alertness Alert Orientation Name,Place,Situation Language Function Ability Hard of Hearing Safety Awareness Understands Safety Issues Memory Description No Deficits Noted Gross Range of Motion Lower Extremity ROM Assessment Right Impaired Impairments pain limiting movement Strength Lower Extremity Strength Assessment Right Impaired Comments Strength Comments pain limiting mobility on RLE Sensation Assessment Sensation Gross Sensation WNL Muscle Tone Muscle Tone WNL Yes M6 PT-IP Treatment Start: 10/25/20 12:21 Freq: NEEDED Status: Active Protocol: Document 10/26/20 11:17 AW (Rec: 10/26/20 12:24 AW [id number]) Physical Therapy Treatment Education Education Provided Weight Bearing Status,Safety M7 PT-IP Assessment and Plan Start: 10/25/20 12:21 Freq: NEEDED Status: Active Protocol: Document 10/26/20 11:17 AW (Rec: 10/26/20 12:24 AW [id number]) PT Summary Assessment and Plan Summary Progress Towards Goals Slow Progress due to Pain,Slow Progress due to Activity Tolerance Assessment Summary Pt's WB status has been updated to WBAT but pt reports too much pain with WB to attempt other than TDWB with FWW. She is ambulating with FWW SBA to CGA. She would benefit from home health at discharge to progress her mobility independence. Goals Bed Mobility Goal Independent Transfer Goal Independent,Front Wheeled Walker Gait Goal Independent,Front Wheel Walker Gait Distance 50 Other Goals up/down 5 steps B rails CGA Days to Meet Goals 10 Frequency of Treatment Frequency Of Treatment Once a Day Treatment Plan Physical Therapy Treatment Plan Bed Mobility Training,Transfer Training,Gait Training, Therapeutic Exercise,Balance Retraining,Post Op Education, Discharge Planning,Hot or Cold Pack,Neuromuscular Re-ed, Coordination Retraining,Manual Therapy Other Recommendations and Next Treatment stairs, gait training WBAT Focus Precautions Other Precautions WBAT RLE; contact precautions Recommendations To Nursing Amount of Assist Needed Standby Assistance Discharge Recommendations PT Discharge Recommendations Home with Assistance,Home Health Equipment Needed for Home Before FWW Discharge Transportation Needs at Discharge Private Vehicle
[2020-10-26 12:04] LABS: C-Reactive Protein Quant 4.4 mg/dL (<1.0)
[2020-10-26] MEDS: glipiZIDE 5 MG TABLET 10 MG PO (16:18)
--- NOTE | 2020-10-26 18:34 | PC.NURSE ---
DREAD reported to this bond underwriter that dinnertime blood sugar was 218, 4 units Lispro given. Per documentation, blood sugar was 142. Notified Dr. Alba, received order to give glucose, if blood sugar is low per protocol and recheck blood sugar. Supplies Packer Clarice notified. Blood sugar rechecked, 218. Will continue to monitor.
[2020-10-26] MEDS: ATORVASTATIN 20 MG TABLET 80 MG PO (20:32)
[2020-10-27] VITALS (8 sets, daily range): BP systolic 140–159; BP diastolic 59–75; PULSE 68–79; RESP 16–18; TEMP 35.9–36.6; O2SAT 95–98
[2020-10-27] MEDS: OXYCODONE IR 5 MG TABLET PO ×5 (03:09→19:42)
--- NOTE | 2020-10-27 07:38 | PM.PNPO.1 ---
Subjective Subjective Date Patient Seen: 10/27/20 Time Patient Seen: 07:39 Interval history: Patient is postop day 3 from arthroscopic irrigation debridement of right knee the [place] septic arthritis. Pain is manageable with current pain regimen. She was working with physical therapy yesterday. She does have some elevated blood sugars will work on lowering her blood sugar. Intraop cultures are still not finalized, therefore we will continue with broad-spectrum antibiotics (vancomycin). She is complaining that her dressing is too tight, therefore we will remove it today. Exam Vital Signs (past 8 hours): - 10/27/20 01:00 10/27/20 05:33 Temperature 96.7 F L 97.8 F Pulse Rate 73 68 Respiratory Rate 16 16 Blood Pressure 155/59 H 142/68 H Pulse Oximetry 95 98 Oxygen Delivery Method Room Air Oxygen Flow Rate 0 Narrative Exam Narrative: Pleasant 75-year-old female, resting in bed comfortably in no apparent distress. Motor functions intact bilateral lower extremities. Sensation is grossly intact to light touch bilateral lower extremities, she is complaining of very mild paresthesias in the right medial ankle compared to the left. Both legs are warm and dry. SCDs on and functioning. There is scant drainage on the dressing bilateral upper, which was removed today. Calves are soft no evidence of cording. She does complain of mild pain on the medial aspect of her right calf. No lower extremity edema noted. Intraoperative cultures have not been finalized as of yet. Objective Labs Result Diagrams: 10/25/20 06:40 10/24/20 13:11 Labs: Laboratory Results - last 24 hr 10/26/20 11:40 C-Reactive Protein 4.4 H [facility] Medical History Acid reflux Diabetes Hyperlipidemia Hypertension Social History household members: spouse Smoking Status: Former smoker alcohol intake: current Assessment & Plan Post-op Postoperative Procedures: Procedures Operation Date: 10/24/20 17:30 Actual Procedure Side Surgeon p Arthroscopy I&D of Knee Right Wade Alba MD Postoperative day: 3 Postoperative status narrative: Status post irrigation and debridement for need of right knee septic arthritis Postoperative plan narrative: Intraoperative cultures are still pending, continue with broad-spectrum vancomycin until cultures are finalized. Mobilize with physical therapy. Pain management as needed. Disposition likely home today, pending cultures and clearance by Physical therapy.
--- NOTE | 2020-10-27 07:39 | CM.DPC ---
Addendum entered by Vanessa Poole R.N. 10/27/20 08:20: Spoke to Yesica at [facility]. She is the transitional personal care service provider. Stated that they have accepted patient for their services, and have already obtained insurance authorization. Her phone number is: [phone]. Updated her that it is uncertain if patient will be ready for discharge today until it is known which antibiotic she will be discharged on. Let her know that this exercise planner will call and update her when she is ready for discharge. Already have face to face completed, and orders. She will just need orders and DC Summary faxed. Original Note: DCP Cont: Spoke to Dr. Alba yesterday, who indicated that culture is still pending, and antibiotic needed for discharge is still unknown. He also gave verbal permission for patient to have home health, [place], as well, and they have referral. [facility] also has referral, but will not be able to run antibiotic as of yet through insurance. P: DCP to continue to follow and will work with [facility] once antibiotic is known. Home is the plan with [facility]. Vanessa Poole RN/Pediatric Acute Care Unit Nurse
[2020-10-27] MEDS: INSULIN LISPRO 100 UNIT/ML 3ML VIAL SUBCUT ×3 (08:29→21:03)
[2020-10-27] MEDS: LOSARTAN 25 MG TABLET 75 MG PO (08:36)
[2020-10-27] MEDS: carvediloL 3.125 MG TABLET 6.25 MG PO ×2 (08:36→21:07)
[2020-10-27] MEDS: ACETAMINOPHEN 325 MG TABLET 975 MG PO ×3 (08:36→21:05)
[2020-10-27] MEDS: glipiZIDE 5 MG TABLET 10 MG PO (08:37)
[2020-10-27] MEDS: polyethylene glycoL 3350 17 GM POWD.PACK PO (08:38)
[2020-10-27] MEDS: ASPIRIN EC 81 MG TABLET PO ×2 (08:41→21:04)
[2020-10-27] MEDS: METFORMIN XR 500 MG TABLET 1000 MG PO (08:41)
[2020-10-27] MEDS: VANCOMYCIN 1,000 MG/200 ML PIGGYBACK 200 MG IV (09:38)
--- NOTE | 2020-10-27 12:48 | PT.IPTN ---
Current Diagnoses Arthritis due to other bacteria, right knee (10/24/20) Surgery Performed Operation Date: 10/24/20 17:30 Actual Procedures p Arthroscopy I&D of Knee(Right) - Wade Alba MD Physical Therapy Treatment Note M2 PT-IP Current Condition Start: 10/25/20 12:21 Freq: NEEDED Status: Active Protocol: Document 10/25/20 09:48 AB (Rec: 10/25/20 12:42 AB [email or web address]) Physical Therapy Current Condition Current Condition Evaluation Date 10/25/20 Treatment Diagnosis R knee sepsis s/p irrigation debridement; difficulty in walking Onset Date 10/24/20 Weight Bearing Status Weight Bearing Status Non-Weight Bearing Allowed Weight Bearing Amount (enter % RLE NWB or #) (%) M3 PT-IP Subjective Start: 10/25/20 12:21 Freq: NEEDED Status: Active Protocol: Document 10/27/20 12:48 AW (Rec: 10/27/20 13:55 AW [id number]) Subjective Physical Therapy Visit Type Type Treatment Note Visit Start Time 12:24 Visit Stop Time 12:48 Total Visit Minutes 24 Notes WB status updated to WBAT RLE per ortho. Number of COLLISION TECHNICIAN Visits 0 Physical Therapy Visit Comments Patient Comments Pt is willing to work with PT Therapy Pain Assessment Pain When Pain Assessed During Mobility Pain Present Pain Present Pain Reported Location Right Knee Intensity 5 Scale Used Numeric (0 - 10) Pain Behaviors Facial Grimacing,Guarding, Moaning,Wincing Pain Management Techniques Apply Cold,Re-positioning, Timing of Activity with Medications M4 PT-IP Mobility and Gait Start: 10/25/20 12:21 Freq: NEEDED Status: Active Protocol: Document 10/27/20 12:48 AW (Rec: 10/27/20 13:55 AW [id number]) PT-Bed Mobility Assessment Supine to Sit Supine to Sit Standby Assistance Sit to Supine Sit to Supine Standby Assistance PT-Transfer Assessment Sit to and From Stand Sit to and from Stand Standby Assistance,Use of Upper Extremities Equipment Transfer Assistive Device Gait Belt,Front Wheeled Walker Orthotic/Prosthetic Devices or Brace: No Transfers Transfer Destination Bed,Wheelchair Transfer Technique Stand Step Pivot Transfer Ability Level of Assist Standby Assistance,Contact Guard Assistance,Use of Upper Extremities Comments Mobility Comments Pt was lying in bed as PT arrived. She completed all bed mobility SBA. She stood from the bed SBA and ambulated 30 feet into the hallway with FWW . She transferred to w/c CGA and was wheeled to the therapy stairs. She stood from the chair SBA and used FWW to approach the stairs. She used B rails to ascend/descend SBA to CGA. She then walked 100 feet with FWW SBA before needing to sit on w/c. In the room, she used FWW to transfer back to bed. She returned to supine SBA. Her spouse, Henri, remained in the room. Gait Assessment Gait Gait Assistance Required: Standby Assistance Distance (Feet) 100 Assistive Devices Assistive Device Gait Belt,Front Wheeled Walker Orthotic/Prosthetic Devices or Brace: No Gait Deviations General Gait Pattern Antalgic,Decreased Stride Length,Decreased Feet Clearance,Flexed Trunk,Step-to Gait Factors Limiting Gait Function Factors Limiting Gait Function Decreased Activity Tolerance, Decreased Strength,Limited Range of Motion,Pain,Poor Balance Comments Gait Comments Pt was able to improve weightbearing RLE this date. Gait pattern advanced to step through with ~50% WB RLE. Stair Climbing Assessment Evaluation Level of Assist On Stairs Standby Assistance,Contact Guard Assistance Devices Stair Climbing Assistive Devices Left Railing,Right Railing Technique/Endurance Stair Climbing Direction Ascend and Descend Stair Climbing Technique Step to Step Number of Steps Climbed 3 Stair Climbing Set # Repetitions (reps) 2 Comments Stair Climbing Comments Pt was able to complete two sets of stairs with good sequencing. On first descent, she used B rails and swung down to first step but corrected her pattern on subsequent stair reps. Pt's spouse was present and able to safely provide necessary assist. PT-Balance Assessment Sitting Balance and Reactions Static Sitting Balance Ability Good Dynamic Sitting Balance Ability Good Standing Balance and Reactions Static Standing Balance Ability Good Dynamic Standing Balance Ability Fair Device Used FWW M5 PT-IP Objective Assessments Start: 10/25/20 12:21 Freq: NEEDED Status: Active Protocol: Document 10/25/20 09:48 AB (Rec: 10/25/20 12:42 AB [email or web address]) Orientation Orientation/Cognition Level of Alertness Alert Orientation Name,Place,Situation Language Function Ability Hard of Hearing Safety Awareness Understands Safety Issues Memory Description No Deficits Noted Gross Range of Motion Lower Extremity ROM Assessment Right Impaired Impairments pain limiting movement Strength Lower Extremity Strength Assessment Right Impaired Comments Strength Comments pain limiting mobility on RLE Sensation Assessment Sensation Gross Sensation WNL Muscle Tone Muscle Tone WNL Yes M6 PT-IP Treatment Start: 10/25/20 12:21 Freq: NEEDED Status: Active Protocol: Document 10/27/20 12:48 AW (Rec: 10/27/20 13:55 AW [id number]) Physical Therapy Treatment Education Education Provided Weight Bearing Status,Safety M7 PT-IP Assessment and Plan Start: 10/25/20 12:21 Freq: NEEDED Status: Active Protocol: Document 10/27/20 12:48 AW (Rec: 10/27/20 13:55 AW [id number]) PT Summary Assessment and Plan Summary Impairments Pain,ROM,Strength,Balance, Coordination,Sensation,Bed Mobility,Transfers,Gait, Activity Tolerance Progress Towards Goals Progressing Toward Goals,Slow Progress due to Pain Assessment Summary Pt was able to improve her gait pattern and weightbearing using FWW today. She completed stair training with spouse present who was able to provide appropriate and safe assist. Pt will be safe to discharge home with assist and HH once medically stable. Goals Bed Mobility Goal Independent Transfer Goal Independent,Front Wheeled Walker Gait Goal Independent,Front Wheel Walker Gait Distance 50 Other Goals up/down 5 steps B rails CGA Days to Meet Goals 10 Frequency of Treatment Frequency Of Treatment Once a Day Treatment Plan Physical Therapy Treatment Plan Bed Mobility Training,Transfer Training,Gait Training, Therapeutic Exercise,Balance Retraining,Post Op Education, Discharge Planning,Hot or Cold Pack,Neuromuscular Re-ed, Coordination Retraining,Manual Therapy Other Recommendations and Next Treatment stairs, gait training WBAT Focus Precautions Other Precautions WBAT RLE; contact precautions Recommendations To Nursing Amount of Assist Needed Standby Assistance Discharge Recommendations PT Discharge Recommendations Home with Assistance,Home Health Equipment Needed for Home Before FWW Discharge
--- NOTE | 2020-10-27 14:45 | CM.DPC ---
DCP Cont: Spoke to Conor at [facility]. He ran Vancomycin through patient's insurance, and stated that 20% cost per week would be about $365.00. He indicated that this would include nursing visit, but did let him know that this senior case manager has ordered [facility] nursing for dressing changes and labs, which would cut some of the cost by approximately $50.00 according to Conor. He will call patient and give her update. Went ahead and retrieved the PICC line measurements and CXR placement, and faxed them to Conor as well. Let him know that prelimary culture notes no growth, but final is not yet in. Spoke to patient and , and patient indicated, she is improving with therapy, and did stair training today. She has 4 stairs to get into her home, but lives on a one level house. She also has rails to get in. Gave her and her an [facility] brochure, as well as one for [facility]. P: DCP to continue to follow. Plan is home with [facility], as well as a visit with [facility] for home teaching, but will depend upon which antibiotic she will be on. Vanessa Poole, CALLIE/Concrete Pavement Installer
[2020-10-27 16:59] LABS: C-Reactive Protein Quant 5.7 mg/dL (<1.0)
[2020-10-27] MEDS: ATORVASTATIN 20 MG TABLET 80 MG PO (21:05)
--- NOTE | 2020-10-27 21:51 | PC.NURSE ---
Pt had uneventful evening. SBA to BR CBG 68 AC,given some juice. CBG 287 HS. given S/S as per orders. BRIAN PICC HL, Two bandaid dsg on right knee CDI. Call light w.in reach, bed alarm on for pt safety. Continue w/plan of care.
[2020-10-28] VITALS (8 sets, daily range): BP systolic 132–161; BP diastolic 57–69; PULSE 65–76; RESP 16–18; TEMP 36.3–36.7; O2SAT 95–98
[2020-10-28] MEDS: OXYCODONE IR 5 MG TABLET PO ×6 (00:34→21:37)
--- NOTE | 2020-10-28 07:24 | P.PN_ITS ---
Subjective Subjective Date Patient Seen: 10/28/20 Time Patient Seen: 07:24 Interval history: The patient's pain is mild. She denies fevers chills or night sweats. No nausea or vomiting. The patient was working with physical therapy yesterday and she has 4 steps to in her single-story house. Her pain is well managed with current medications. She has no further complaints. Exam Vital Signs (past 8 hours): - 10/28/20 05:20 Temperature 97.6 F Pulse Rate 76 Respiratory Rate 16 Blood Pressure 161/62 H Pulse Oximetry 95 Oxygen Delivery Method Room Air Oxygen Flow Rate 0 Narrative Exam Narrative: She is a pleasant 75-year-old female resting comfortably in bed with no apparent distress. Motor functions intact bilateral lower extremities. Sensation grossly intact to light touch in bilateral lower extremities. Both legs are warm and dry. SCDs were on and functioning. Portal holes are covered with Band-Aids which are clean and dry. Bilateral calves are soft. nontender to palpation. Objective Labs Result Diagrams: 10/25/20 06:40 10/24/20 13:11 Labs: Laboratory Results - last 24 hr 10/27/20 15:20 C-Reactive Protein 5.7 H PFSH Medical History Acid reflux Diabetes Hyperlipidemia Hypertension Social History household members: spouse Smoking Status: Former smoker alcohol intake: current Assessment & Plan Post-op Postoperative Procedures: Procedures Operation Date: 10/24/20 17:30 Actual Procedure Side Surgeon p Arthroscopy I&D of Knee Right Wade Alba MD Postoperative status narrative: Stable status post right knee arthroscopic irrigation and debridement for [place] right knee septic arthritis. Postoperative plan narrative: Mobilize with physical therapy. Weightbearing as tolerated right lower extremity. Disposition likely home today, however this is pending finalized intraoperative cultures. We will attempt to call the lab to get final results today.
[2020-10-28] MEDS: glipiZIDE 5 MG TABLET 10 MG PO ×2 (08:32→16:50)
[2020-10-28] MEDS: LOSARTAN 25 MG TABLET 75 MG PO (08:33)
[2020-10-28] MEDS: ASPIRIN EC 81 MG TABLET PO ×2 (08:35→20:15)
[2020-10-28] MEDS: ACETAMINOPHEN 325 MG TABLET 975 MG PO ×3 (08:35→20:14)
[2020-10-28] MEDS: carvediloL 3.125 MG TABLET 6.25 MG PO ×2 (08:35→20:15)
[2020-10-28] MEDS: INSULIN LISPRO 100 UNIT/ML 3ML VIAL SUBCUT ×3 (08:36→20:20)
[2020-10-28] MEDS: polyethylene glycoL 3350 17 GM POWD.PACK PO (08:38)
[2020-10-28] MEDS: METFORMIN XR 500 MG TABLET 1000 MG PO ×2 (08:59→17:10)
--- NOTE | 2020-10-28 09:10 | PT.IPTN ---
Current Diagnoses Arthritis due to other bacteria, right knee (10/24/20) Surgery Performed Operation Date: 10/24/20 17:30 Actual Procedures p Arthroscopy I&D of Knee(Right) - Wade Alba MD Physical Therapy Treatment Note M2 PT-IP Current Condition Start: 10/25/20 12:21 Freq: NEEDED Status: Active Protocol: Document 10/28/20 09:10 AB (Rec: 10/28/20 11:59 AB [id number]) Physical Therapy Current Condition Weight Bearing Status Weight Bearing Status Weight Bear as Tolerated Allowed Weight Bearing Amount (enter % WBAT RLE or #) (%) M3 PT-IP Subjective Start: 10/25/20 12:21 Freq: NEEDED Status: Active Protocol: Document 10/28/20 09:10 AB (Rec: 10/28/20 11:58 AB [email or web address]) Subjective Physical Therapy Visit Type Type Treatment Note Visit Start Time 09:10 Visit Stop Time 09:50 Total Visit Minutes 40 Number of NETWORK CONTRACT MANAGER Visits 0 Physical Therapy Visit Comments Patient Comments agreeable to do PT Therapy Pain Assessment Pain When Pain Assessed At Rest Pain Present Pain Present Pain Reported Location Right Knee Intensity 4 Scale Used increases to 5/10 with mobility Pain Management Techniques Apply Cold,Modification of Treatment,Re-positioning, Timing of Activity with Medications M4 PT-IP Mobility and Gait Start: 10/25/20 12:21 Freq: NEEDED Status: Active Protocol: Document 10/28/20 09:10 AB (Rec: 10/28/20 11:58 AB [email or web address]) PT-Bed Mobility Assessment Supine to Sit Supine to Sit Standby Assistance,Head of Bed Elevated Sit to Supine Sit to Supine Standby Assistance,Head of Bed Elevated PT-Transfer Assessment Sit to and From Stand Sit to and from Stand Standby Assistance Equipment Transfer Assistive Device Front Wheeled Walker Orthotic/Prosthetic Devices or Brace: No Transfers Transfer Destination Toilet Transfer Technique ambulated Transfer Ability Level of Assist Standby Assistance,Contact Guard Assistance,1 Person Assistance,Use of Upper Extremities Comments Mobility Comments completed supine to sit HOB elevated SBA. requested to use the toilet and completed sit to stand SBA and ambulated to the toilet using FWW SBA to CGA. completed toileting without assistance and ambulated from the toilet to the sink using fWW SBA. pt was able to maintain standing using counter for support SBA while completing hand washing. pt rested on EOB. ambulated ~ 125 ft using FWW SBA to occasional CGA. pt with antalgic gait and heave UE use on FWW. increase R knee flexion with decrease heel strike on ambulation. cued pt to correct but stated that she is having posterior knee pain. informed pt to do what she can due to her hamstring getting tight. Pt corrected and able to do some heel strike during ambulation but still limited. pt completed up/down steps x 2 sets using B rails SBA to CGA . pt ambulated back towards her room ~ 50 ft FWW SBA tp CGA. assisted pt the rest of the way back. ambulated using fWW w/c to bed ~ 15 ft SBA. positioned in bed. call light and table placed within reach . Gait Assessment Gait Gait Assistance Required: Standby Assistance,Contact Guard Assist Distance (Feet) 125 Able to Maintain Weight Bearing Status Yes During Gait Assistive Devices Assistive Device Gait Belt,Front Wheeled Walker Orthotic/Prosthetic Devices or Brace: No Gait Deviations General Gait Pattern Antalgic,Decreased Stride Length,Decreased Feet Clearance Factors Limiting Gait Function Factors Limiting Gait Function Decreased Activity Tolerance, Decreased Strength,Limited Range of Motion,Pain,Poor Balance Stair Climbing Assessment Evaluation Level of Assist On Stairs Standby Assistance,Contact Guard Assistance Devices Stair Climbing Assistive Devices Left Railing,Right Railing Technique/Endurance Stair Climbing Direction Ascend and Descend Stair Climbing Technique Step to Step Number of Steps Climbed 3 Stair Climbing Set # Repetitions (reps) 2 M5 PT-IP Objective Assessments Start: 10/25/20 12:21 Freq: NEEDED Status: Active Protocol: Document 10/25/20 09:48 AB (Rec: 10/25/20 12:42 AB [id number]) Orientation Orientation/Cognition Level of Alertness Alert Orientation Name,Place,Situation Language Function Ability Hard of Hearing Safety Awareness Understands Safety Issues Memory Description No Deficits Noted Gross Range of Motion Lower Extremity ROM Assessment Right Impaired Impairments pain limiting movement Strength Lower Extremity Strength Assessment Right Impaired Comments Strength Comments pain limiting mobility on RLE Sensation Assessment Sensation Gross Sensation WNL Muscle Tone Muscle Tone WNL Yes M6 PT-IP Treatment Start: 10/25/20 12:21 Freq: NEEDED Status: Active Protocol: Document 10/28/20 09:10 AB (Rec: 10/28/20 11:58 [email or web address]) Physical Therapy Treatment Education Education Provided Safety M7 PT-IP Assessment and Plan Start: 10/25/20 12:21 Freq: NEEDED Status: Active Protocol: Document 10/28/20 09:10 AB (Rec: 10/28/20 11:58 [email or web address]) PT Summary Assessment and Plan Potential Rehabilitation Potential Good Summary Impairments Pain,ROM,Strength,Balance, Cognition,Bed Mobility, Transfers,Gait,Activity Tolerance Progress Towards Goals Slow Progress due to Pain Assessment Summary pt requiring SBA to CGA with mobility and will have her spouse to assist her at home. pt stated that her spouse was able to get a FWW for her to use. pt may go home when medically stable. will benefit from outpt PT. Goals Bed Mobility Goal Independent Transfer Goal Independent,Front Wheeled Walker Gait Goal Independent,Front Wheel Walker Gait Distance 50 Other Goals up/down 5 steps B rails CGA Days to Meet Goals 10 Frequency of Treatment Frequency Of Treatment Once a Day Treatment Plan Physical Therapy Treatment Plan Bed Mobility Training,Transfer Training,Gait Training, Therapeutic Exercise,Balance Retraining,Post Op Education, Discharge Planning,Hot or Cold Pack,Neuromuscular Re-ed, Coordination Retraining,Manual Therapy Precautions Other Precautions WBAT RLE Recommendations To Nursing Amount of Assist Needed 1 Person Assist Discharge Recommendations PT Discharge Recommendations Home with Assistance,Home Health,Outpatient PT
[2020-10-28] MEDS: VANCOMYCIN 1,000 MG/200 ML PIGGYBACK 200 MG IV (10:19)
[2020-10-28 12:27] LABS: Add Manual Diff / Slide Review NO; Basophils Absolute Auto 100 /uL (0-100); Basophils Percent Auto 1.2 % (0-2); Eosinophils Absolute Auto 100 /uL (0-450); Eosinophils Percent Auto 0.9 % (2-4); Hematocrit 28.2 % (36-46); Hemoglobin 9.4 g/dL (12.0-16.0); Lymphocytes Absolute Auto 1700 /uL (1100-4500); Lymphocytes Percent Auto 15.4 % (25-40); Mean Corpuscular HGB Conc 33.1 % (30-36); Mean Corpuscular Hemoglobin 29.1 PG (26-34); Mean Corpuscular Volume 87.9 fL (80-100); Monocytes Absolute Auto 900 /uL (0-900); Monocytes Percent Auto 8.2 % (3-14); Neutrophils Absolute Auto 8300 /uL (1500-7000); Neutrophils Percent Auto 74.3 % (50-75); Platelet Count 595 X10^3/uL (150-400); Red Blood Cell Count 3.21 X10^6/uL (4.0-5.2); White Blood Cell Count 11.2 X10^3/uL (4.5-11.0)
[2020-10-28 12:28] LABS: Estimated Glomerular Filt Rate > 60.0 mL/min (>60)
[2020-10-28 12:39] LABS: C-Reactive Protein Quant 6.9 mg/dL (<1.0)
[2020-10-28 12:48] LABS: Erythrocyte Sedimentation Rate 73 MM/HR (0-20)
--- NOTE | 2020-10-28 13:06 | CM.DPC ---
Addendum entered by Carolyne Turner LPN 10/28/20 15:00: Received confirmation from Conor/KAREEN that cost of IV Dapto would be approx $[address] Alba was updated. Confirmed either antibiotic would be fine. Pt and Kishor thus will go with the IV vancomycin, currently dosed at 1000. Dr. Alba states he will discuss this with pharmacy and plan for a d/c to home tomorrow after the morning dose. Met with pt and Kishor for an update just as Kishor was completing his phone call with Conor. All agree plan for a d/c tomorrow (pt hoping this will be before noon). [facility] will see pt at her home in [place] on 10/30 for morning dose and teach. [facility] will be going out as per plan set up by CALLIE Doe on 10/25. CALLEI King (Kathryn) is updated. Addendum entered by Carolyne Turner LPN 10/28/20 13:29: Met with pt and her Kishor: cell: [phone]. Went over plan as per below. Pt said she had not talked with Conor yesterday as she has just taken a pain pill and could not think. Her then attempted to call Conor but were not able to connect. Relayed the financial out of pocket for them on the Vancomycin and the route to this info by way of referral to [employer] by the [facility] team Dr. Alba did say that if Vancomycin was the decision then pt would need to stay on in the hospital until tomorrow (at advice from pharacy and dosing/lab needs). Neither pt nor Kishor indicated staying until tomorrow was a problem. At this time, they will await the the cost on the Daptomycin. The first dose has been ordered for this afternoon. CALLIE Nuñez is updated. Will see update pt, Kishor and Dr. Alba as soon as more is known. Original Note: DCP: continued: Case received and spoke now with Dr. Alba. He states that after conferring with ID at [facility] the recommendation is for IV daptomycin 400 mg once day for 4 weeks. Other option would be the IV Vancomycin that pt is currently one. (at ($365 a week out of pocket for pt). Agreed to give info to [facility] for update and cost and then to call him back. Conor/IS now is updated and will await his call back and check in with pt.
--- NOTE | 2020-10-28 15:13 | CM.DPNOTE ---
Called [facility] at Carolyne's request and spoke to Stephanie giving her an update on pt. being discharged tomorrow. Stephanie said she will let her team know of this DC. Kaylene Lee CM Asst.
--- NOTE | 2020-10-28 19:59 | PC.NURSE ---
Pt satisfactory progress Med w/oxy as per orders for discomfort w/good relief. ' bandaids to knee CDI CBG @ 1200 = 245; S/S 4u given. CBG @ 1700 = 135, no coverage required BRIAN PICC intact/patent. Call light w/in reach, bed alarm on for pt safety. Continue w/plan of care.
[2020-10-28] MEDS: ATORVASTATIN 20 MG TABLET 80 MG PO (20:14)
[2020-10-29 00:20] VITALS: BP 145/65; PULSE 67; RESP 16; TEMP 36.1; O2SAT 98
[2020-10-29] MEDS: OXYCODONE IR 5 MG TABLET PO ×3 (01:04→12:07)
[2020-10-29 05:11] VITALS: BP 166/64; PULSE 83; RESP 16; TEMP 36.2; O2SAT 95
[2020-10-29 07:20] VITALS: BP 157/74; PULSE 78; RESP 16; TEMP 36.1; O2SAT 96
[2020-10-29] MEDS: ASPIRIN EC 81 MG TABLET PO (08:08)
[2020-10-29] MEDS: ACETAMINOPHEN 325 MG TABLET 975 MG PO (08:08)
[2020-10-29] MEDS: carvediloL 3.125 MG TABLET 6.25 MG PO (08:11)
[2020-10-29] MEDS: INSULIN LISPRO 100 UNIT/ML 3ML VIAL SUBCUT (08:14)
--- NOTE | 2020-10-29 08:39 | P.DS_ITS ---
History of Present Illness History of Present Illness Date Patient Seen: 10/29/20 Time Patient Seen: 08:39 Chief complaint: infection in knee. Dr Alba sent you Narrative: Refer to previous HPI. Discharge Providers Provider Date of admission: 10/24/20 14:35 Discharge Date: 10/29/20 Primary care physician: Wade Alba MD Consults: 10/24/20 20:18 Consult to Discharge Planning Routine Comment: Consult to Physical Therapy Evaluate & Treat Comment: Physician Instructions: Evaluate and Treat Consult to Respiratory Therapy Evaluate & Treat Comment: Physician Instructions: Evaluate and treat 10/26/20 14:59 Consult to Home Health Routine Comment: Reason For Exam: Home Health RN, P.T, O.T Discharge provider: Parish Reddy PA-C Summary Hospital Course Discharge Diagnosis: Septic arthritis right knee Status post Arthroscopic irrigation debridement right knee Hospital Course: Patient was admitted to the hospital following the above-listed procedure for the above-listed diagnosis. Following the procedure the patient has been convalescing appropriately in her pain has been managed with current pain management regimen. Throughout the time the hospital the patient has denied fever, chills, nausea, chest pain, shortness of breath, or urinary retention. Patient has successfully worked on ambulation with the assistance of a front wheeled walker with physical therapy. She has remained weight-bearing as tolerated following the removal of her wound drain in her right knee. Patient had been receiving Ancef and vancomycin IV for her infection in the right knee. Status at Discharge Cognitive/behavioral status at discharge: oriented Functional status at discharge: uses cane/walker Overall status at discharge: patient is progressing back to baseline Exam Vital Signs (past 8 hours): - 10/29/20 05:11 Temperature 97.1 F L Pulse Rate 83 Respiratory Rate 16 Blood Pressure 166/64 H Pulse Oximetry 95 Oxygen Delivery Method Room Air Oxygen Flow Rate 0 Narrative Exam Narrative: 75-year-old female. Patient is resting comfortably in bed, is in no acute distress, is alert and oriented x3. Skin is warm dry and pink. Good sensation appreciated throughout the bilateral lower extremities light touch. Mild tenderness to palpation along the medial aspect of the right knee. Gross motor function intact. DP pulses palpated bilaterally and are even. No signs of DVT appreciated. Const General: cooperative, healthy appearing and comfortable Resp Effort & Inspection: normal respiratory effort and able to speak in complete sentences Skin General: no rashes or lesions noted Objective Labs Result Diagrams: 10/28/20 12:00 10/28/20 12:00 Labs: Laboratory Results - last 24 hr 10/28/20 10/28/20 10/28/20 12:00 12:00 12:00 WBC 11.2 H RBC 3.21 L Hgb 9.4 L Hct 28.2 L MCV 87.9 MCH 29.1 MCHC 33.1 RDW 14.0 Plt Count 595 H Neut % (Auto) 74.3 Lymph % (Auto) 15.4 L [place] % (Auto) 8.2 Eos % (Auto) 0.9 L Baso % (Auto) 1.2 Neut # (Auto) 8300 H Lymph # (Auto) 1700 [place] # (Auto) 900 Eos # (Auto) 100 Baso # (Auto) 100 ESR 73 H Creatinine 0.84 Estimated GFR > 60.0 C-Reactive Protein 6.9 H PFSH Medical History Acid reflux Diabetes Hyperlipidemia Hypertension Social History household members: spouse Smoking Status: Former smoker alcohol intake: current Discharge Assessment & Plan Assessment and Plan Assessment: Patient is doing well and is stable. Plan of Treatment: First postoperative visit in clinic is scheduled for 2 weeks following discharge from hospital. Current pain management regimen is to be continued as it is adequately controlled the patient's pain level. Aspirin 81 mg twice daily is to be continued for 6 weeks for DVT prophylaxis. Patient is to remain weight- bearing as tolerated with the assistance of a front wheeled walker. Patient is to contact clinic with any concerns or questions. Any signs of increased redness, swelling, warmth, pain, or discharge from around the right knee should be reported to the clinic. Plan for 6 weeks of IV vancomycin via [facility] for her right knee infection. Discharge Plan Discharge Plan Patient Disposition: Home Provider Discharge Comment: Patient cleared for discharge pending PT clearance. Discharge orders & Medications Prescriptions: New acetaminophen 325 mg Tablet 975 mg PO TID Qty: 90 RF: 0 aspirin 81 mg Tablet,Delayed Release (Dr/Ec) 81 mg PO BID Qty: 90 RF: 0 oxycodone 5 mg Tablet 5 mg PO Q3HR PRN (Reason: Pain, Moderate (4-6)) Qty: 42 RF: 0 vancomycin-water inject (PEG) 1 gram/200 mL Piggyback 1,000 mg IV Q24H 42 Days Qty: 8400 RF: 0 Continued ascorbic acid (vitamin C) 1,000 mg Tablet 1,000 mg PO DAILY RF: 0 aspirin 81 mg Tablet,Delayed Release (Dr/Ec) 81 mg PO DAILY RF: 0 calcium carbonate [Antacid (calcium carbonate)] 200 mg calcium (500 mg) Tablet,Chewable 200 mg PO BID RF: 0 cyanocobalamin (vitamin B-12) 500 mcg Tablet 500 mcg PO DAILY RF: 0 ferrous sulfate 325 mg (65 mg iron) Tablet 325 mg PO DAILY RF: 0 glipizide 10 mg Tablet 10 mg PO BID RF: 0 insulin glargine 100 unit/mL (3 mL) Insulin Pen See Rx Instructions .ROUTE .COMPLEX RF: 0 losartan 25 mg Tablet 75 mg PO DAILY RF: 0 metformin 500 mg Tablet Extended Release 24 Hr 1,000 mg PO BID RF: 0 therapeutic multivitamin Tablet 1 tab PO DAILY RF: 0 vitamin A-vitamin C-vit E-min Tablet 1 tab PO DAILY RF: 0 omeprazole 20 mg Capsule,Delayed Release(Dr/Ec) 20 mg PO BID RF: 0 atorvastatin 80 mg Tablet 80 mg PO BEDTIME RF: 0 cholecalciferol (vitamin D3) [Vitamin D3] 25 mcg (1,000 unit) Capsule 25 mcg PO DAILY RF: 0 carvedilol [Coreg] 6.25 mg Tablet 6.25 mg PO BID RF: 0 Lactobacill 46-B.animal-inulin 10 billion cell -100 mg Capsule 1 cap PO DAILY RF: 0 Follow up/Referrals: Wade Alba MD [Primary Care Provider] - Diet/Activity/Treatments Diet: Diet as Tolerated and Regular Activity: Weight-bearing as tolerated with the assistance of a front wheeled walker. Cold/Heat Therapy: Apply ice as needed Skin/Wound/Dressing Care Report to your healthcare provider any signs of infection, such as:: chills, fever, night sweats, unusual drainage and unusual redness Visit Report/Discharge Packet Instructions: DI for Heart Failure, DI for Prescription Opioid Use, DI for Knee Arthroscopy Stand Alone Forms: Against Medical Advice, Surgery Discharge Discharge Data Primary Care Provider: Wade Alba
--- NOTE | 2020-10-29 09:38 | CM.DPC ---
Addendum entered by Vanessa Poole R.N. 10/29/20 12:33: Dr. Alba updated script adding labs for Tuesday. Faxed over to [facility], copied scripted to it can be scanned, original will be given to patient. NurseMaribell, is aware. Addendum entered by Vanessa Poole R.N. 10/29/20 12:17: Dr. Alba came by and gave verbal for trough on Tuesday. Let him know that [facility] may call them for a verbal orders, or for any other labs needed. Addendum entered by Vanessa Poole R.N. 10/29/20 12:07: Nurse, Maribell, was concerned since patient is due for a trough tomorrow, since her Vanco was already given. Asked her if she wanted to contact ortho, to see if a new order could be retrieved. Spoke to Conor at [facility]. He has arranged for a nurse to come out to patient's home today between [phone]. , Kishor, is aware, and has been in contact. Conor indicated, they are not concerned about the trough being done tomorrow, they can do Tuesday. Updated nurse, Maribell. Original Note: DCP Cont: Patient has discharge orders for today. Kishor, , is currently in the room. Parish Reddy PAC, went ahead and completed orders for Vancomycin. Script completed for q24 hours, and faxed to [facility]. Plan is that she will get her 10:00 dose here, and will start at home tomorrow. Called Conor at [facility], for script had been faxed to them. He indicated, he is not sure what time a nurse will come out tomorrow for the teaching, but they will contact of the time. He had already spoken to Kishor troy, yesterday. Called [facility] and spoke to Anand. Let him know that patient is discharging home today. Went [place] and faxed over DC Summary, face to face and orders. Let , Kishor, know that they will also be contacting him. P: Patient is discharging home today after she receives her IV ABO. Vanessa Poole RN/Senior Corporate Recruiter
[2020-10-29] MEDS: VANCOMYCIN 1,000 MG/200 ML PIGGYBACK 200 MG IV (09:50)
[2020-10-29] MEDS: METFORMIN XR 500 MG TABLET 1000 MG PO (09:53)
[2020-10-29] MEDS: LOSARTAN 25 MG TABLET 75 MG PO (09:54)
[2020-10-29] MEDS: glipiZIDE 5 MG TABLET 10 MG PO (09:54)
--- NOTE | 2020-10-29 10:25 | PT.IPTN ---
Current Diagnoses Arthritis due to other bacteria, right knee (10/24/20) Surgery Performed Operation Date: 10/24/20 17:30 Actual Procedures p Arthroscopy I&D of Knee(Right) - Wade Alba MD Physical Therapy Treatment Note M2 PT-IP Current Condition Start: 10/25/20 12:21 Freq: NEEDED Status: Active Protocol: Document 10/28/20 09:10 AB (Rec: 10/28/20 11:59 AB [id number]) Physical Therapy Current Condition Weight Bearing Status Weight Bearing Status Weight Bear as Tolerated Allowed Weight Bearing Amount (enter % WBAT RLE or #) (%) M3 PT-IP Subjective Start: 10/25/20 12:21 Freq: NEEDED Status: Active Protocol: Document 10/29/20 10:25 AB (Rec: 10/29/20 11:18 AB [id number]) Subjective Physical Therapy Visit Type Type Treatment Note Visit Start Time 10:25 Visit Stop Time 10:45 Total Visit Minutes 20 Number of PCB DESIGN ENGINEER Visits 0 Physical Therapy Visit Comments Patient Comments agreeable to do PT Therapy Pain Assessment Pain When Pain Assessed During Mobility Location Right Knee Scale Used pain scale not stated Pain Management Techniques Modification of Treatment, Timing of Activity with Medications M4 PT-IP Mobility and Gait Start: 10/25/20 12:21 Freq: NEEDED Status: Active Protocol: Document 10/29/20 10:25 AB (Rec: 10/29/20 11:18 AB [email or web address]) PT-Bed Mobility Assessment Supine to Sit Supine to Sit Standby Assistance,Head of Bed Elevated Sit to Supine Sit to Supine Standby Assistance,Head of Bed Elevated PT-Transfer Assessment Sit to and From Stand Sit to and from Stand Standby Assistance Equipment Transfer Assistive Device Gait Belt,Front Wheeled Walker Orthotic/Prosthetic Devices or Brace: No Transfers Transfer Destination Toilet Transfer Technique ambulated using FWW Transfer Ability Level of Assist Standby Assistance Comments Mobility Comments completed supine to sit SBA with HOB elevated. completed ambulation to the toilet using FWW sBA and completed toileting without assistance. ambulated towards the sink SBA using FWW SBA and completed handwashing. ambulated in the hallway ~ 125 using FWW SBA. completed up/down steps using B rails SBA. ambulate more ~ 250 ft and back to her room using FWW SBA. completed sit to supine SBA HOB elevated. positioned in bed. call light and table placed within reach . Gait Assessment Gait Gait Assistance Required: Standby Assistance Distance (Feet) 250 Able to Maintain Weight Bearing Status Yes During Gait Assistive Devices Assistive Device Gait Belt,Front Wheeled Walker Orthotic/Prosthetic Devices or Brace: No Gait Deviations General Gait Pattern Antalgic,Decreased Stride Length,Step-to Gait Factors Limiting Gait Function Factors Limiting Gait Function Decreased Activity Tolerance, Decreased Strength,Limited Range of Motion,Pain,Poor Balance Stair Climbing Assessment Evaluation Level of Assist On Stairs Standby Assistance Devices Stair Climbing Assistive Devices Left Railing,Right Railing Technique/Endurance Stair Climbing Direction Ascend and Descend Stair Climbing Technique Step to Step Number of Steps Climbed 3 Stair Climbing Set # Repetitions (reps) 1 M5 PT-IP Objective Assessments Start: 10/25/20 12:21 Freq: NEEDED Status: Active Protocol: Document 10/25/20 09:48 AB (Rec: 10/25/20 12:42 [email or web address] Orientation Orientation/Cognition Level of Alertness Alert Orientation Name,Place,Situation Language Function Ability Hard of Hearing Safety Awareness Understands Safety Issues Memory Description No Deficits Noted Gross Range of Motion Lower Extremity ROM Assessment Right Impaired Impairments pain limiting movement Strength Lower Extremity Strength Assessment Right Impaired Comments Strength Comments pain limiting mobility on RLE Sensation Assessment Sensation Gross Sensation WNL Muscle Tone Muscle Tone WNL Yes M6 PT-IP Treatment Start: 10/25/20 12:21 Freq: NEEDED Status: Active Protocol: Document 10/29/20 10:25 AB (Rec: 10/29/20 11:18 AB [id number]) Physical Therapy Treatment Education Education Provided Safety M7 PT-IP Assessment and Plan Start: 10/25/20 12:21 Freq: NEEDED Status: Active Protocol: Document 10/29/20 10:25 AB (Rec: 10/29/20 11:18 AB [id number]) PT Summary Assessment and Plan Potential Rehabilitation Potential Good Summary Impairments Pain,ROM,Strength,Balance,Bed Mobility,Transfers,Gait, Activity Tolerance Progress Towards Goals Progressing Toward Goals Assessment Summary pt requiring SBA with mobility using FWW. spouse will be able to assist pt at home. pt may go home when medically stable. Goals Bed Mobility Goal Independent Transfer Goal Independent,Front Wheeled Walker Gait Goal Independent,Front Wheel Walker Gait Distance 50 Other Goals up/down 5 steps B rails CGA Days to Meet Goals 10 Frequency of Treatment Frequency Of Treatment Once a Day Treatment Plan Physical Therapy Treatment Plan Bed Mobility Training,Transfer Training,Gait Training, Therapeutic Exercise,Balance Retraining,Post Op Education, Discharge Planning,Hot or Cold Pack,Neuromuscular Re-ed, Coordination Retraining,Manual Therapy Precautions Other Precautions WBAT RLE Recommendations To Nursing Amount of Assist Needed 1 Person Assist Discharge Recommendations PT Discharge Recommendations Home with Assistance,Home Health,Outpatient PT
--- NOTE | 2020-10-29 15:28 | PC.NURSE ---
Discharge: Feels ready to d/c to home. Received IV antibiotic. Reviewed d/c packet. [facility] will be following IV antibiotic. Questions answered. Pt d/c to home via auto w/spouse.
== END 2020-10-29 12:10 | disposition home or self-care (01) | DRG 487 ==
LOC: ED 14:16 → AC 14:35
PROVIDERS: Physician Assistant; Admitting Provider Orthopaedic Surgery Adult Reconstructive Orthopaedic Surgery; Emergency Provider Emergency Medicine; PCP Orthopaedic Surgery Adult Reconstructive Orthopaedic Surgery; Referring Provider Emergency Medicine; Visit Provider Orthopaedic Surgery Adult Reconstructive Orthopaedic Surgery
PROC: 3E1U48Z Irrigation of Joints using Irrigating Substance, Percutaneous Endoscopic Approach (ICD-10-PCS; CPT 29870; principal; 2020-10-24 17:30)
DX: M00.061 Staphylococcal arthritis, right knee (principal); B95.8 Unspecified staphylococcus as the cause of diseases classified elsewhere; M65.9 Synovitis and tenosynovitis, unspecified; Z87.891 Personal history of nicotine dependence; Z20.822 Contact with and (suspected) exposure to COVID-19; E11.9 Type 2 diabetes mellitus without complications; Z79.4 Long term (current) use of insulin; I10 Essential (primary) hypertension; K21.9 Gastro-esophageal reflux disease without esophagitis
CPT/HCPCS: 36415; 36592; 80053; 82565; 82962; 84145; 85025; 85027; 85610; 85651; 86140; 87070; 87075; 87077; 87205; 87635; 93005; 94760; 96360; 97116; 97162; 97530; 99284; C9803; J0330; J0690; J1100; J1642; J1815; J2250; J2405; J2704; J3010

== ENCOUNTER → 2021-07-14 09:43 | Outpatient (CLI) | payer MEDICARE, SELFPAY ==
[2020-10-24 14:38] VITALS: BMI 24.8
[2021-07-14 11:00] LABS: COVID19 -Nasal RAPID Negative (Negative)
== END ==
PROVIDERS: PCP Orthopaedic Surgery Adult Reconstructive Orthopaedic Surgery; Visit Provider Family Medicine Sleep Medicine
DX: Z20.822 Contact with and (suspected) exposure to COVID-19 (principal)
CPT/HCPCS: 87635

== ENCOUNTER 2021-07-14 12:17 | Observation (INO) | payer MEDICARE, SELFPAY ==
[2020-10-24 14:38] VITALS: BMI 24.8
[2021-07-13 12:43] VITALS: BMI 23.8
[2021-07-14] VITALS (13 sets, daily range): BP systolic 124–176; BP diastolic 43–62; PULSE 56–72; RESP 12–18; TEMP 36.4–36.9; O2SAT 95–99; BMI 23.8
--- NOTE | 2021-07-14 12:30 | DI.RAD.S_ITS ---
PROCEDURE: XR KNEE RT 1TO2V INDICATIONS: TKA TECHNIQUE: 2 view(s) of the knee acquired. COMPARISON: [facility] Doe [place], CR, XR KNEE STANDING BILATERAL, 06/30/2020, 14:41. FINDINGS: Bones: Patient is status post knee joint arthroplasty. Hardware components are in expected positions. Visualized bony structures are intact. Soft tissues: Overlying postoperative changes are noted. IMPRESSION: Expected appearance status post right total knee arthroplasty. Dictated by: Lori Mcclain M.D. on 07/15/2021 at 8:26 Approved by: Lori Mcclain M.D. on 07/15/2021 at 8:27
[2021-07-14] MEDS: VANCOMYCIN 1,000 MG/200 ML PIGGYBACK 200 MG IV (13:00)
[2021-07-14] MEDS: LACTATED RINGERS 1,000 ML 84 ML IV (13:11)
[2021-07-14] MEDS: ACETAMINOPHEN 325 MG TABLET 975 MG PO (13:12)
[2021-07-14] MEDS: CELECOXIB 200 MG CAPSULE PO (13:13)
--- NOTE | 2021-07-14 14:25 | P.OP_ITS ---
Operative Date/Time/Diagnoses Date of procedure: 07/14/21 Time of procedure: 14:50 Pre-op diagnosis: Right total knee arthroplasty Post-op diagnosis: same Procedure & Clinicians Procedure: Right total knee arthroplasty Same procedure as scheduled: Yes Indications: The patient has had progressively worsening right knee pain with radiographic changes consistent with arthritis. She has a very complicated past history. 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 She previously had recurrent effusions which did grow a bacteria and underwent an arthroscopic debridement and subsequently was treated with 6 weeks of IV antibiotics. She has seen Infectious Disease and they feel that she is a candidate for knee arthroplasty but that we should take cultures and sensitivities at time of surgery and send tissue for PCR and then continue her on IV antibiotics until we have negative culture and sensitivity and PCR results. We have had a very extensive discussion on multiple multiple occasions. She is also a diabetic who is poorly controlled but has gotten that under control. Risk for ongoing infection or recurrent infection was discussed in detail. As well as concerns about periprosthetic joint effusion and the severity of that problem. It is about 18 months that she has been having ongoing symptoms and she has had no evidence of infection and multiple negative aspirations and is now brought to the operating room for a right total knee arthroplasty. Non-operative management has failed and the patient has requested total knee replacement. The risks, benefits and alternatives to surgery were discussed with the patient prior to proceeding. Risks discussed included, but were not limited to, failure to relieve pain, stiffness, infection, nerve damage, deep venous thrombosis, pulmonary embolism, stroke, coma, heart attack, permanent paralysis and , as well as the potential need for eventual revision of the prosthetic. Surgeon: Genoveva Cunningham Equity Research Associate: Tiffanie Harris Anesthesia Type: General and Spinal Operative Notes Findings: Thickened synovium, no obvious osteomyelitis, good stability, good bone some osteoarthritic change and synovitis without severe panus Closure Type: primary Specimen(s): other (Tissue for PCR) Prosthetic devices, grafts, tissues, transplants, or devices: [employer] BCS 2 size 5 femur, size 3 tibia, +9 poly, 35 x 7.5 mm patella Estimated Blood Loss (mL): 250 Blood products transfused: none Tourniquet time (min): 80 Procedure in detail: The patient was seen in the pre-operative area, where the patient identified the right knee as the operative site and this was marked with my initials. The patient received pre-operative antibiotics, and was taken to the operating room and placed on the operative table in the supine position. After satisfactory anesthesia, a time study observer out was performed. The right leg was encircled with a tourniquet about the proximal thigh, and the leg was prepared from the toes to the tourniquet with ChloroPrep in the usual fashion and draped through sterile drapes. The leg was elevated and exsanguinated with Eschmark bandage and the tourniquet inflated to [250] mmHg pressure. The knee was approached through an approximately 18 cm incision centered over the patella and carried into the knee through a medial parapatellar arthrotomy. A portion of the medial and lateral meniscus was resected. Thickened synovium was carefully resected and sent for PCR and Gram stain culture and sensitivity. Multiple specimens were sent for bacterial, fungal and AFB PCR as well as culture and sensitivity. There was some fluid in the posterior aspect of the knee posterior medial consistent with a fairly large Bustamante cyst. This was aspirated and sent for culture and sensitivity and a cell count. Soft tissue was carefully mobilized around the patella the patella was measured with a caliper. Bone was resected from the patella and the patellar height was reconstituted with up an appropriate sized patellar component. A cover was then placed on the patella. A small amount of additional medial and lateral meniscus was resected. The distal femur was cut at 5?. A [+2] cut was used. It looked like an appropriate distal femoral cut and the cut was made without difficulty. An extramedullary guide was used for the tibial cut. 10 mm was resected off the least affected side.The tibia was prepared. The rotation was assessed. The patient was placed in extension residual medial and lateral meniscus as well as any residual bone was carefully resected. [No] additional tibia was resected. Hemostasis was achieved especially posteriorly. Additional local was injected into the posterior capsule. The extension gap was assessed and additional releases for gap balancing were performed as necessary. It was checked with the gap forest ecology professor. The femoral component was trial was placed and the notch was finished. The rotation was assessed and the appropriate size femoral guide was placed on the distal femur and finishing cuts were made. There is no evidence of notching. The anterior, posterior and chamfer cuts were then made. The posterior osteophytes and soft tissues were then removed. The posterior capsule was injected with part of a mixture of 60 ml 0.25% Marcaine mixed with 20 ml Exparel for post operative pain control. The remainder of this mixture was injected into the capsule and subcutaneous tissues during cement curing. The tibial and femoral components were then placed and the knee placed through a range of motion. Range of motion was [0-130], with good stability throughout the range. The trials were then removed, and the tibia was finished. The bone was prepared with pulsatile lavage, and dried with a sponge. Cement was applied and the final prosthetics placed. Excess cement was removed during and after cement curing. A brief Betadine soak was performed. After confirming there was no extruded cement posteriorly, the final tibial insert was placed. The knee was copiously irrigated and the tourniquet deflated. Hemostasis was obtained with the Bovie cautery. A drain was placed and brought out superolaterally. The capsule was closed with interrupted nonabsorbable suture. The subcutaneous layer was closed with interrupted Vicryl sutures, and the skin with a running 3-0 V-Lock suture and Surgical glue. An Aquacel Ag dressing was applied and the patient was taken to recovery having tolerated the procedure well. Complications: none Post-operative Condition: stable Disposition: Acute Care Plan for aftercare: The patient will be maintained on a standard total knee replacement protocol with weight bearing as tolerated. The patient will receive aspirin and sequential compression devices for DVT prophylaxis. The patient will be discharged home when safe for the home environment. Patient will be admitted to [facility] for IV antibiotics. She may require a PICC line. According to the recommendations of Infectious Disease we will continue her on IV antibiotics until we have negative culture and sensitivity and PCR results.
--- NOTE | 2021-07-14 14:25 | PM.PREOP ---
Pre-operative Note COVID-19 COVID-19 status: Negative Interval Note History & Physical reviewed/Exam performed by Physician: Yes Changes to H&P: No
[2021-07-14] MEDS: CEFAZOLIN 2 GM/20 ML SYRINGE IV ×2 (15:15→23:21)
[2021-07-14] MEDS: TRANEXAMIC ACID 1,000 MG VIAL 2000 MG INJ ×2 (15:17→16:45)
--- NOTE | 2021-07-14 15:37 | SUR.OPER ---
Supine on padded OR bed. Pillow under head, arms secured on padded armboards <90 degree abduction. Safety belt across torso. Non-operative leg secured with tape over blanket over lower leg. Operative leg secured in [place] in control of the surgeon. Foam padded brace at thigh of operative leg.
[2021-07-14] MEDS: SODIUM CHLORIDE IRRIG SOLUTION 250 ML, POVIDONE-IODINE SPONGE STICKS 1 APPLIC IRR (16:05)
[2021-07-14] MEDS: BUPIVACAINE LIPOSOME 266 MG/20 ML VIAL INJ (16:06)
[2021-07-14] MEDS: BUPIVACAINE 0.25% (PF) 60 ML, EPINEPHrine 0.3 MG INJ (16:06)
[2021-07-14 16:56] LABS: Body Fluid Appearance CLOUDY; Body Fluid Clotted? NO CLOTS PRESENT; Body Fluid Color YELLOW; Body Fluid Red Blood Cells 8532 /uL; Body Fluid Tot Nucleated Cells 14056 /uL
[2021-07-14 17:51] LABS: Mononuclear WBC Body Fluid 29 %; Polynuclear WBC Body Fluid 71 %
[2021-07-14] MEDS: LACTATED RINGERS 1,000 ML 100 ML IV (18:40)
--- NOTE | 2021-07-14 18:52 | PC.NURSE ---
Pt arrived on the floor around 1800 following a total R knee replacement. She is A&O x3 but LUMBEE. Pt is on 2L O2. Her incision is covered with an aquacel dressing and her leg is wrapped. Pt has feeling to her foot on her left side and feeling to her knee on her right side, she is able to wiggle her left toes but not the right at this time. Pedal pulses are good. Pt has LR running at 100 mL/hr into L peripheral IV. is at bedside.
[2021-07-14 19:53] LABS: Add Manual Diff / Slide Review NO; Basophils Absolute Auto 0 /uL (0-100); Basophils Percent Auto 0.2 % (0-2); Eosinophils Absolute Auto 0 /uL (0-450); Eosinophils Percent Auto 0.1 % (2-4); Hematocrit 31.6 % (36-46); Hemoglobin 10.6 g/dL (12.0-16.0); Lymphocytes Absolute Auto 800 /uL (1100-4500); Lymphocytes Percent Auto 6.1 % (25-40); Mean Corpuscular HGB Conc 33.4 % (30-36); Mean Corpuscular Hemoglobin 28.5 PG (26-34); Mean Corpuscular Volume 85.3 fL (80-100); Monocytes Absolute Auto 100 /uL (0-900); Neutrophils Absolute Auto 12700 /uL (1500-7000); Neutrophils Percent Auto 92.6 % (50-75); Platelet Count 361 X10^3/uL (150-400); Red Cell Distribution Width 14.4 % (11.6-14.8); White Blood Cell Count 13.8 X10^3/uL (4.5-11.0)
[2021-07-14 20:04] LABS: Estimated Glomerular Filt Rate 57 mL/min (>60)
[2021-07-14] MEDS: ASPIRIN EC 81 MG TABLET PO (20:21)
[2021-07-14] MEDS: ACETAMINOPHEN 325 MG TABLET 650 MG PO (20:21)
[2021-07-14] MEDS: DOCUSATE 100 MG CAPSULE PO (20:21)
[2021-07-14] MEDS: OXYCODONE IR 5 MG TABLET PO (20:22)
[2021-07-14] MEDS: hydrOXYzine pamoate 25 MG CAPSULE PO (21:17)
[2021-07-14] MEDS: OXYCODONE IR 10 MG TABLET PO (23:19)
[2021-07-15] VITALS (8 sets, daily range): BP systolic 126–178; BP diastolic 34–48; PULSE 62–75; RESP 18–20; TEMP 36.1–37.2; O2SAT 93–98
[2021-07-15] MEDS: OXYCODONE IR 10 MG TABLET PO ×7 (02:35→21:42)
[2021-07-15 04:53] LABS: Hematocrit 30.9 % (36-46); Hemoglobin 10.2 g/dL (12.0-16.0)
[2021-07-15] MEDS: CEFAZOLIN 2 GM/20 ML SYRINGE IV ×3 (06:03→22:32)
[2021-07-15] MEDS: hydrOXYzine pamoate 25 MG CAPSULE PO ×3 (06:16→19:24)
--- NOTE | 2021-07-15 08:32 | P.PN_ITS ---
Subjective Subjective Date Patient Seen: 07/15/21 Time Patient Seen: 08:32 Interval history: Sitting up in bed, eating breakfast. No complaints, good pain control. Has not worked with PT yet. Exam Vital Signs (past 8 hours): - 07/15/21 04:09 Temperature 97.4 F L Pulse Rate 62 Respiratory Rate 19 Blood Pressure 161/47 H Pulse Oximetry 94 Oxygen Delivery Method Nasal Cannula Oxygen Flow Rate 0 Narrative Exam Narrative: 5/5 strength in hip flexors, quadriceps, hamstrings, DF, PF, EHL bilaterally. Sensation to light touch intact throughout BLE. Calves soft, compressible, nontender and without palpable cords or masses. Aquacel dressing CDI. Objective Labs Result Diagrams: 07/15/21 04:30 07/14/21 19:35 Labs: Laboratory Results - last 24 hr 07/14/21 07/14/21 07/14/21 15:30 19:35 19:35 WBC 13.8 H RBC 3.70 L Hgb 10.6 L Hct 31.6 L MCV 85.3 MCH 28.5 MCHC 33.4 RDW 14.4 Plt Count 361 Neut % (Auto) 92.6 H Lymph % (Auto) 6.1 L Williams % (Auto) 1.0 L Eos % (Auto) 0.1 L Baso % (Auto) 0.2 Neut # (Auto) 65110 H Lymph # (Auto) 800 L Williams # (Auto) 100 Eos # (Auto) 0 Baso # (Auto) 0 Creatinine 1.01 Estimated GFR 57 L Fluid Color Yellow Fluid Appearance Cloudy Fluid RBC 8532 Fld Tot Nucleated Cell 85208 Fluid Polynuclear WBCs 71 Fluid Mononuclear WBCs 29 Fluid Eosinophils Not Reportable Fluid Other Cells Not Reportable Body Fluid Clot No clots present 07/15/21 04:30 WBC RBC Hgb 10.2 L Hct 30.9 L MCV MCH MCHC RDW Plt Count Neut % (Auto) Lymph % (Auto) Williams % (Auto) Eos % (Auto) Baso % (Auto) Neut # (Auto) Lymph # (Auto) Williams # (Auto) Eos # (Auto) Baso # (Auto) Creatinine Estimated GFR Fluid Color Fluid Appearance Fluid RBC Fld Tot Nucleated Cell Fluid Polynuclear WBCs Fluid Mononuclear WBCs Fluid Eosinophils Fluid Other Cells Body Fluid Clot [facility] Medical History (Updated 07/15/21 @ 11:18 by Tiffanie Harris PA-C) Acid reflux Calcium pyrophosphate deposition disease (CPPD) Diabetes Essential hypertension Hearing impaired Hyperlipidemia Hypertension Surgical History (Updated 07/15/21 @ 11:07 by Tiffanie Harris PA-C) History of carpal tunnel surgery of left wrist History of carpal tunnel surgery of right wrist History of hysterectomy (1984) Hx of bilateral cataract extraction Hx of repair of left rotator cuff Hx of repair of right rotator cuff Social History household members: spouse Smoking Status: Former smoker alcohol intake: current Assessment & Plan Post-op Assessment and plan (1) Status post total knee replacement: Assessment and Plan narrative: Continue PT, multimodal pain control, ASA and SCDs for VTE prophylaxis. Plan for discharge home with appropriate antibiotics - if needed - pending cultures and PCR testing. (2) Calcium pyrophosphate deposition disease (CPPD): Assessment and Plan narrative: She previously had recurrent effusions which did grow a bacteria and underwent an arthroscopic debridement and subsequently was treated with 6 weeks of IV an tibiotics.? She has seen Infectious Disease and they feel that she is a candidate for knee arthroplasty but that we should take cultures and sensitivities at time of surgery and send tissue for PCR and then continue her on IV antibiotics (vancomycin 1000mg daily and cefazolin 2000mg a 8 hrs) until w e have negative culture and sensitivity and PCR results.?? (3) Acute postoperative anemia due to expected blood loss: Assessment and Plan narrative: Asymptomatic, no intervention needed at this time. (4) Diabetes: Assessment and Plan narrative: Continue glipizide and metformin, will add SSI if fingerstick checks become consistently elevated. (5) Essential hypertension: Assessment and Plan narrative: Continue home meds. (6) Acid reflux: Assessment and Plan narrative: Continue omeprazole and Tums. Postoperative Procedures: Procedures Operation Date: 07/14/21 14:30 Actual Procedure Side Surgeon p Total Knee Arthroplasty Right Genoveva Cunningham MD Postoperative day: 1
[2021-07-15] MEDS: DOCUSATE 100 MG CAPSULE PO ×2 (08:48→20:37)
[2021-07-15] MEDS: ACETAMINOPHEN 325 MG TABLET 650 MG PO ×3 (08:48→20:36)
[2021-07-15] MEDS: ASPIRIN EC 81 MG TABLET PO ×2 (08:48→20:37)
[2021-07-15] MEDS: polyethylene glycoL 3350 17 GM POWD.PACK PO (08:49)
[2021-07-15] MEDS: VANCOMYCIN 500 MG in SODIUM CHLORIDE 0.9% 100 ML IV ×2 (09:16→20:40)
--- NOTE | 2021-07-15 09:20 | PT.IIE ---
Current Diagnoses Acute posthemorrhagic anemia (07/14/21) Type 2 diabetes mellitus without complications (07/14/21) Essential (primary) hypertension (07/14/21) Gastro-esophageal reflux disease without esophagitis (07/14/21) Other chondrocalcinosis, unspecified site (07/14/21) Unilateral primary osteoarthritis, right knee (07/14/21) Presence of unspecified artificial knee joint (07/14/21) Surgery Performed Operation Date: 07/14/21 14:30 Actual Procedures p Total Knee Arthroplasty(Right) - Genoveva Cunningham MD Medical History (Last Updated 07/15/21 @ 11:18 by Tiffanie Harirs PA-C) Acid reflux Calcium pyrophosphate deposition disease (CPPD) Diabetes Essential hypertension Hearing impaired Hyperlipidemia Hypertension Physical Therapy Inpatient Evaluation/Re-Eval M1 PT/OT-IP Prior Functional Status Start: 07/15/21 12:22 Freq: NEEDED Status: Active Protocol: Document 07/15/21 09:20 AB (Rec: 07/15/21 12:36 AB [email or web address]) Medical Review Prior Functional Status Medical History Reviewed Yes Communication able to make needs known Mobility and Gait pt stated that she is modified independent with all mobilities and ambulation without AD Social History Household Members spouse Living Arrangements House Number of Floors (Floors) One Floor Number of Stairs To Enter/Railing? 4 steps L rail ascending to enter the house Home Environment Standard Height Toilet,Walk in Shower,Built-In Shower Seat Home Equipment Front Wheel Walker,Four Wheel Walker,Raised Toilet Seat Without Armrests,Grab Bars In Shower Additional Social History Comment has a toilet safety frame pt sleeps on a recliner has a hurrycane at home M2 PT-IP Current Condition Start: 07/15/21 12:22 Freq: NEEDED Status: Active Protocol: Document 07/15/21 09:20 AB (Rec: 07/15/21 12:36 AB [email or web address]) Physical Therapy Current Condition Current Condition Evaluation Date 07/15/21 Treatment Diagnosis s/p R TKA ; difficulty in walking Onset Date 07/14/21 M3 PT-IP Subjective Start: 07/15/21 12:22 Freq: NEEDED Status: Active Protocol: Document 07/15/21 09:20 AB (Rec: 07/15/21 12:36 AB [email or web address]) Subjective Physical Therapy Visit Type Type Initial Evaluation Visit Start Time 09:20 Visit Stop Time 10:20 Total Visit Minutes 60 Number of STOREPERSON Visits 0 Physical Therapy Visit Comments Patient Comments agreeable to do PT Therapy Pain Assessment Pain When Pain Assessed At Rest Pain Present Pain Present Pain Reported Location Right Knee Intensity 4 Scale Used increases with mobility Pain Management Techniques Apply Cold,Distraction, Modification of Treatment,Re- positioning,Timing of Activity with Medications M4 PT-IP Mobility and Gait Start: 07/15/21 12:22 Freq: NEEDED Status: Active Protocol: Document 07/15/21 09:20 (Rec: 07/15/21 12:36 [email or web address]) PT-Bed Mobility Assessment Supine to Sit Supine to Sit Standby Assistance PT-Transfer Assessment Sit to and From Stand Sit to and from Stand Contact Guard Assistance, Minimal Assistance,1 Person Assistance,Use of Upper Extremities Equipment Transfer Assistive Device Gait Belt,Front Wheeled Walker Orthotic/Prosthetic Devices or Brace: No Transfers Transfer Destination Toilet Transfer Technique ambulated Transfer Ability Level of Assist Minimal Assistance,1 Person Assistance,Use of Upper Extremities Comments Mobility Comments BP in supine: 130/34. pt completed supine to sit SBA. able to sit on EOB SBA. completed sit to stand min A and ambulated to the toilet using FWW min A. c/o increase R knee pain. presents with very slow charm[place] and increase RLE guarding during mobility. completed sit to stand from the toilet using grab bar CGA. ambulated to the sink using FWW min A and able to maintain standing CGA while completing handwashing. pt agreed to ambulate more in room and completed 30 ft using FWW CGA to min A and cues. pt agreed to sit on chair. positioned on chair. ice pack provded. call light and table placed within reach. Gait Assessment Gait Gait Assistance Required: Contact Guard Assist,Minimum Assistance Distance (Feet) 30 Able to Maintain Weight Bearing Status Yes During Gait Assistive Devices Assistive Device Gait Belt,Front Wheeled Walker Orthotic/Prosthetic Devices or Brace: No Gait Deviations General Gait Pattern Antalgic,Decreased Stride Length,Decreased Feet Clearance,Step-to Gait Factors Limiting Gait Function Factors Limiting Gait Function Decreased Activity Tolerance, Decreased Strength,Limited Range of Motion,Pain,Poor Balance,Poor Safety Awareness PT-Balance Assessment Sitting Balance and Reactions Static Sitting Balance Ability Good Dynamic Sitting Balance Ability Good Standing Balance and Reactions Static Standing Balance Ability Fair Dynamic Standing Balance Ability Fair Device Used FWW M5 PT-IP Objective Assessments Start: 07/15/21 12:22 Freq: NEEDED Status: Active Protocol: Document 07/15/21 09:20 AB (Rec: 07/15/21 12:36 AB [email or web address]) Orientation Orientation/Cognition Level of Alertness Alert Orientation Name,Place,Situation Language Function Ability No Deficits Noted Safety Awareness Decreased Safety Awareness Memory Description No Deficits Noted Gross Range of Motion Lower Extremity ROM Impairments R knee flexion: ~ 45 deg R knee extension: ~ 25 deg less to 0 Strength Lower Extremity Strength Assessment Right Impaired Hip 4-/5 Knee 3+/5 Coordination Assessment Gross Coordination Gross Coordination WNL Sensation Assessment Sensation Gross Sensation WNL Muscle Tone Muscle Tone WNL Yes M6 PT-IP Treatment Start: 07/15/21 12:22 Freq: NEEDED Status: Active Protocol: Document 07/15/21 09:20 AB (Rec: 07/15/21 12:36 [email or web address]) Physical Therapy Treatment Education Education Provided Precautions,Weight Bearing Status,Post-Op Packet,Safety M7 PT-IP Assessment and Plan Start: 07/15/21 12:22 Freq: NEEDED Status: Active Protocol: Document 07/15/21 09:20 AB (Rec: 07/15/21 12:36 [email or web address]) PT Summary Assessment and Plan Potential Rehabilitation Potential Good Status of Condition at Evaluation Stable Summary Impairments Pain,ROM,Strength,Balance, Coordination,Sensation,Tone, Cognition,Bed Mobility, Transfers,Gait,Activity Tolerance Assessment Summary pt requiring CGA to min A with mobility using FWW but with decrease activity tolerance with c/o increase pain with mobility. pt plans to go home and spouse to assist pt. set up PT session in the afternoon ~130 pm and when appropriate, will conduct caregiver training and stair climbing training. pt agreed. will continue to assess progress. Goals Bed Mobility Goal Independent Transfer Goal Independent,Front Wheeled Walker Gait Goal Independent,Front Wheel Walker Gait Distance 200 Other Goals up/down 4 steps L rail ascending SBA Days to Meet Goals 5 Frequency of Treatment Frequency Of Treatment Twice a Day Treatment Plan Physical Therapy Treatment Plan Bed Mobility Training,Transfer Training,Gait Training, Therapeutic Exercise,Balance Retraining,Post Op Education, Discharge Planning,Hot or Cold Pack,Neuromuscular Re-ed, Coordination Retraining,Manual Therapy Other Recommendations and Next Treatment 07/15/21: PT session 130 pm: Focus possible caregiver training and stair climbing training if appropriate Weight Bearing Status Weight Bearing Status Weight Bear as Tolerated Allowed Weight Bearing Amount (enter % RLE WBAT or #) (%) Recommendations To Nursing Amount of Assist Needed 1 Person Assist Discharge Recommendations PT Discharge Recommendations Home with Assistance, Outpatient PT Transportation Needs at Discharge Private Vehicle
[2021-07-15] MEDS: METFORMIN XR 500 MG TABLET 1000 MG PO ×2 (12:39→20:37)
--- NOTE | 2021-07-15 14:31 | PT.IPTN ---
Current Diagnoses Acute posthemorrhagic anemia (07/14/21) Type 2 diabetes mellitus without complications (07/14/21) Essential (primary) hypertension (07/14/21) Gastro-esophageal reflux disease without esophagitis (07/14/21) Other chondrocalcinosis, unspecified site (07/14/21) Unilateral primary osteoarthritis, right knee (07/14/21) Presence of unspecified artificial knee joint (07/14/21) Surgery Performed Operation Date: 07/14/21 14:30 Actual Procedures p Total Knee Arthroplasty(Right) - Genoveva Cunningham MD Physical Therapy Treatment Note M2 PT-IP Current Condition Start: 07/15/21 12:22 Freq: NEEDED Status: Active Protocol: Document 07/15/21 13:33 SP (Rec: 07/15/21 15:21 SP [id number]) Physical Therapy Current Condition Current Condition Evaluation Date 07/15/21 Treatment Diagnosis s/p R TKA ; difficulty in walking Onset Date 07/14/21 M3 PT-IP Subjective Start: 07/15/21 12:22 Freq: NEEDED Status: Active Protocol: Document 07/15/21 13:33 SP (Rec: 07/15/21 15:21 SP [id number]) Subjective Physical Therapy Visit Type Type Treatment Note Visit Start Time 13:33 Visit Stop Time 14:31 Total Visit Minutes 58 Notes present, completed caregiver training including donning gait belt, and all assist requried throughout tx. Vital taken during tx: supine:123/38 HR 68 SaO2 96% on RA. Post transfer to chair: 126/38 Hr 74 nonsymptomatic throughout tx. Number of COAL PIPELINE OPERATOR Visits 1 Physical Therapy Visit Comments Patient Comments Pt agreeable to working with therapy. Increased time to mobilize due to decrease strength and activity tolerance. Patient Goals Return home with to assist her, is set up with outpt therapy starting next week. Therapy Pain Assessment Pain When Pain Assessed During Mobility Pain Present Pain Present Pain Reported Location Right Knee Intensity 2 Scale Used Numeric (0 - 10) Description With Movement Pain Management Techniques Apply Cold,Distraction, Modification of Treatment,Re- positioning,Timing of Activity with Medications M4 PT-IP Mobility and Gait Start: 07/15/21 12:22 Freq: NEEDED Status: Active Protocol: Document 07/15/21 13:33 SP (Rec: 07/15/21 15:21 SP [id number]) PT-Bed Mobility Assessment Supine to Sit Supine to Sit Standby Assistance Sit to Supine Sit to Supine Standby Assistance Scooting Scooting to Edge of Bed Standby Assistance Scooting Up and Down in Bed Standby Assistance PT-Transfer Assessment Sit to and From Stand Sit to and from Stand Standby Assistance,Contact Guard Assistance,Use of Upper Extremities Equipment Transfer Assistive Device Gait Belt,Front Wheeled Walker Orthotic/Prosthetic Devices or Brace: No Transfers Transfer Destination Bed,Chair Transfer Technique ambulated w/ FWW Transfer Ability Level of Assist Standby Assistance,Contact Guard Assistance,Use of Upper Extremities Comments Mobility Comments BP 123- 126/38 during this tx, nursing notified, nonsymptomatic. Instructed R knee post op ex: AP, quad set, HS AROM approx 50deg/AAROM w/ strap 80 deg. Completed supine<> sit SBA with LUE contact RLE to self mobilize. Sit<>stand from EOB, CGA intially then decreased to SBA . Gait L side bed around end bed to chair sBA with FWW, improved WB into RLE and quad ext as distance progressed. Stand>sit SBA. Progressed gait into hallway using fWW CG-SBA approx 230 ft step over step, increased time due to slow pacing, good quality heel toe and R knee flexion demonstrated, completed 3 stairs L HR and hurry cane in RUE CGA, 1 PF step w/ FWW as has to enter home CGA trunk and fWW safety. Pt complete fully lap around nursing station 230 ft total with FWW, SBA- CGA, noted decreased R knee flexion/ hip hiking little last 100 ft due to decreased strength and activity tolerance. Pt had w/c follow but not needed. Pt returned to bed when in room, SBA. Pt had call light and all needs in reach, bed alarmed. Pt is progressing and able to return home with when medically stable. Nursing stated no DC orders yet, waiting on lab results possible infection. Gait Assessment Gait Gait Assistance Required: Contact Guard Assist,Minimum Assistance Distance (Feet) 230 Able to Maintain Weight Bearing Status Yes During Gait Assistive Devices Assistive Device Gait Belt,Front Wheeled Walker Orthotic/Prosthetic Devices or Brace: No Gait Deviations General Gait Pattern Antalgic,Decreased Stride Length,Decreased Feet Clearance Factors Limiting Gait Function Factors Limiting Gait Function Decreased Activity Tolerance, Decreased Strength,Limited Range of Motion,Pain Comments Gait Comments See mobility comments for details. Stair Climbing Assessment Evaluation Level of Assist On Stairs Contact Guard Assistance,1 Person Assistance Devices Stair Climbing Assistive Devices Straight Cane,Left Railing Technique/Endurance Stair Climbing Direction Ascend and Descend Stair Climbing Technique Step to Step Number of Steps Climbed 3 Stair Climbing Set # Repetitions (reps) 1 Comments Stair Climbing Comments 3 stairs w/ L HR and hurry cane on R, 1 PF step w/ FWW, stable no LOB good pattern sequencing. PT-Balance Assessment Sitting Balance and Reactions Static Sitting Balance Ability Normal Dynamic Sitting Balance Ability Good Standing Balance and Reactions Static Standing Balance Ability Good Dynamic Standing Balance Ability Good Device Used FWW M5 PT-IP Objective Assessments Start: 07/15/21 12:22 Freq: NEEDED Status: Active Protocol: Document 07/15/21 09:20 AB (Rec: 07/15/21 12:36 AB [email or web address]) Orientation Orientation/Cognition Level of Alertness Alert Orientation Name,Place,Situation Language Function Ability No Deficits Noted Safety Awareness Decreased Safety Awareness Memory Description No Deficits Noted Gross Range of Motion Lower Extremity ROM Impairments R knee flexion: ~ 45 deg R knee extension: ~ 25 deg less to 0 Strength Lower Extremity Strength Assessment Right Impaired Hip 4-/5 Knee 3+/5 Coordination Assessment Gross Coordination Gross Coordination WNL Sensation Assessment Sensation Gross Sensation WNL Muscle Tone Muscle Tone WNL Yes M6 PT-IP Treatment Start: 07/15/21 12:22 Freq: NEEDED Status: Active Protocol: Document 07/15/21 13:33 SP (Rec: 07/15/21 15:21 SP [id number]) Physical Therapy Treatment Exercises Exercises Ankle Pumps,Quad Sets,Heel Slides,Passive Knee Extension Hang Knee ROM Measurement 80deg flexion AAROM, 50 deg AROM R knee Education Education Provided Precautions,Weight Bearing Status,Post-Op Packet,Safety Other Treatments Other Treatment Performed Education on importance of allowing knee extension laying down. If elevate, fully leg no pillow just under R knee, pt verbalized understanding. M7 PT-IP Assessment and Plan Start: 07/15/21 12:22 Freq: NEEDED Status: Active Protocol: Document 07/15/21 13:33 SP (Rec: 07/15/21 15:21 SP [id number]) PT Summary Assessment and Plan Potential Rehabilitation Potential Good Status of Condition at Evaluation Stable Summary Impairments Pain,ROM,Strength,Balance, Coordination,Sensation,Tone, Cognition,Bed Mobility, Transfers,Gait,Activity Tolerance Progress Towards Goals Progressing Toward Goals,Slow Progress due to Pain,Slow Progress due to Medical Issues ,Slow Progress due to Activity Tolerance Assessment Summary Pt sBA bed mobility, transfers and gait w/ FWW CG- SBA. CGA on stairs. Pt is ok to return home with to assist her when medically cleared. Pt is set up with outpt therapy next week. Goals Bed Mobility Goal Independent Transfer Goal Independent,Front Wheeled Walker Gait Goal Independent,Front Wheel Walker Gait Distance 200 Other Goals up/down 4 steps L rail ascending SBA Days to Meet Goals 5 Frequency of Treatment Frequency Of Treatment Twice a Day Treatment Plan Physical Therapy Treatment Plan Bed Mobility Training,Transfer Training,Gait Training, Therapeutic Exercise,Balance Retraining,Post Op Education, Discharge Planning,Hot or Cold Pack,Neuromuscular Re-ed, Coordination Retraining,Manual Therapy Other Recommendations and Next Treatment post op ex, transfers, gait w/ Focus FWW. Suggested pt is ok to walk with nursing over the evening if request. Weight Bearing Status Weight Bearing Status Weight Bear as Tolerated Allowed Weight Bearing Amount (enter % RLE WBAT or #) (%) Recommendations To Nursing Amount of Assist Needed Standby Assistance,1 Person Assist Discharge Recommendations PT Discharge Recommendations Home with Assistance, Outpatient PT Transportation Needs at Discharge Private Vehicle
--- NOTE | 2021-07-15 17:25 | CM.DANOTE ---
DCP/Assessment: Reviewed chart. Patient is a 75yr old female admitted to [facility] for right TKA performed on 07-14-21. PCP is Nai Victor. Primary payor is 1)[employer]. Met with patient and spouse at bedside explained CM/SW role. Patient reports that she hopes to d/c home tomorrow. Spouse confirms that he will be her support. Patient reports that she has all needed DME and has outpatient therapy arranged in [place]. Patient reports that provider is keeping her another night because they are waiting on cultures to determine abx needed at time of d/c. P: Home when medically stable. CM to follow for d/c planning needs. [facility] Discharge Planning/Care Management CM Discharge Assessment Start: 07/15/21 17:22 Freq: Status: Active Protocol: Document 07/15/21 17:23 [facility] (Rec: 07/15/21 17:25 [facility] [id number]) Discharge Planning Assessment Assigned Training Program Assistant ANATOLY Parker Contact Information Kishor Babin (spouse) # Advance Directives? Yes Advance Directives on File No History Provided By Patient,Significant Other, Medical Record Prior Living Arrangements House Household Members spouse Independent with ADL's Yes Is patient alert and oriented? Yes Caregiver for Another No DME Already Rented / Owned FWW / Walker Patient/Family Preference OP PT Therapy Barriers to Discharge No Discharge Plan Home Transportation Arrangement Spouse Referrals Initiated None needed Whiteboard Updated in Patient Room with Yes name and ext. # of Training Program Assistant Review Status In Process Next Review Type Continued Stay Review Pre-Anesthesia Assessment Start: 07/13/21 12:43 Freq: Status: Active Protocol: Document 07/13/21 12:43 [facility] (Rec: 07/13/21 12:58 [facility] [id number]) Pre-Anesthesia Assessment Patient Information Reviewed Via Phone Assessment Assessment Completed With Patient Seen Specialist in Last 12 Months Yes Specialist Seen In Flight Refueling Craftsman Primary Language Polish Preferred Language Polish Playground Supervisor Required No Height 157.48 cm Weight 58.967 kg Body Mass Index (BMI) 23.8 Hearing Ability Hard of Hearing,Use of Hearing Aid Visual Assist Glasses Dentition Type Teeth, Natural Present Barriers to Learning None Hx Anesthesia Reactions No Hx Family Anesthesia Reaction No Hx Malignant Hyperthermia No Hx Blood Transfusions No Hx Blood Transfusion Reaction No Anesthesia Review Requested No alcohol intake current alcohol intake frequency a few times a month Smoking Status Former smoker how long ago did patient quit smoking On and off, quit approxx 2-3 years ago Substance Use Type does not use Pain Present Pain Reported Musculoskeletal Symptoms Abnormal Gait,Difficulty Walking,Joint Pain History of Falling (Recent or History of No ) Patient is completely paralyzed or No completely immobile Mental Status Oriented to own ability Is patient on oxygen? No Does patient have LANGLEY/SOB No Hx Sleep Apnea No CPAP/BIPAP use not prescribed Currently Taking a Beta Willi Yes: Caravedilol Can You Climb a Flight of Stairs Without Yes SOB Hx Chest Pain No Hx SOB No Hx Syncope or Dizziness No Anti-Coagulant Therapy No Has a In Flight Refueling Craftsman Yes: Dr. Pendleton - visit Cardiac Testing Yes: Nuc perf scan 06/18/21 Hx Pacemaker/ICD No Pacemaker Rep Required? No Cardiac Clearance Received Yes Comment Cardiac records put in surgery folder for dos Diet Type At Home Regular dysphagia No Gastrointestinal Symptoms Reflux Bladder Pattern Incontinent Urinary Catheter Present No Hx Urinary Self Catheterization No Diabetes Yes HgbA1C 8.1 Comment Per patient approx less than 6 months ago Patient No Lactating No Hx Drug Resistant Organism No Presence of External or Internal Medical Yes: Bilat eye IOLs, hearing Devices aids Have you had any close contact with No someone diagnosed with COVID-19? Received a COVID vaccine? Yes Received all doses? Yes Marital Status Lives With spouse Prior Living Arrangements House Number of Floors (Floors) One Floor Support System Spouse Does the Patient Have Assistance After Yes Surgery Patient Discharge Plan Description Return Home Comment Pt not advised on length of stay per surgeon Feels Safe in Current Environment Yes Been Physically Hurt or Threatened By a No Person in Current Environment Do you have thoughts of harming yourself None or others? Are you currently considering suicide? No Do you have a plan to hurt yourself or No Plan others? Do You Have Any Spiritual Beliefs That No May Affect Your HC Choices? Do You Have Any Cultural Practices That No May Affect Your HC Choices? Comment Denominational Who Can We Speak to About Patient's Care Family, friends Identifying Code for Release of Patient Declines to issue Information Health Care Proxy/Next of Kin Kishor () Health Care Proxy cell: Emergency Contact Name Kishor Babin Emergency Contact Advance Directives? No Advance Directives on File No Power of Kiss Mixer Yes Power of Kiss Mixer Name Kishor Babin Power of Kiss Mixer PAC Instructions Diabetes instructions,Durable medical equipment,Medications to take/avoid,Nasal antibiotic ,No ETOH/petroleum product on skin DOS,NPO,Post-op transportation,Pre-surgical wash,Sensory aids,Sturdy shoes /comfortable clothes,Do not bring valuables and remove jewelry Discharge Planning/Care Management CM Discharge Assessment Start: 07/15/21 17:22 Freq: Status: Active Protocol: Document 07/15/21 17:23 [facility] (Rec: 07/15/21 17:25 [facility] [id number]) Discharge Planning Assessment Assigned Training Program Assistant ANATOLY Parker Contact Information Kishor Babin (spouse) ph# Advance Directives? Yes Advance Directives on File No History Provided By Patient,Significant Other, Medical Record Prior Living Arrangements House Household Members spouse Independent with ADL's Yes Is patient alert and oriented? Yes Caregiver for Another No DME Already Rented / Owned FWW / Walker Patient/Family Preference OP PT Therapy Barriers to Discharge No Discharge Plan Home Transportation Arrangement Spouse Referrals Initiated None needed Whiteboard Updated in Patient Room with Yes name and ext. # of Training Program Assistant Review Status In Process Next Review Type Continued Stay Review Pre-Anesthesia Assessment Start: 07/13/21 12:43 Freq: Status: Active Protocol: Document 07/13/21 12:43 [facility] (Rec: 07/13/21 12:58 [facility] [id number]) Pre-Anesthesia Assessment Patient Information Reviewed Via Phone Assessment Assessment Completed With Patient Seen Specialist in Last 12 Months Yes Specialist Seen In Flight Refueling Craftsman Primary Language Polish Preferred Language Polish Playground Supervisor Required No Height 157.48 cm Weight 58.967 kg Body Mass Index (BMI) 23.8 Hearing Ability Hard of Hearing,Use of Hearing Aid Visual Assist Glasses Dentition Type Teeth, Natural Present Barriers to Learning None Hx Anesthesia Reactions No Hx Family Anesthesia Reaction No Hx Malignant Hyperthermia No Hx Blood Transfusions No Hx Blood Transfusion Reaction No Anesthesia Review Requested No alcohol intake current alcohol intake frequency a few times a month Smoking Status Former smoker how long ago did patient quit smoking On and off, quit approxx 2-3 years ago Substance Use Type does not use Pain Present Pain Reported Musculoskeletal Symptoms Abnormal Gait,Difficulty Walking,Joint Pain History of Falling (Recent or History of No ) Patient is completely paralyzed or No completely immobile Mental Status Oriented to own ability Is patient on oxygen? No Does patient have LANGLEY/SOB No Hx Sleep Apnea No CPAP/BIPAP use not prescribed Currently Taking a Beta Willi Yes: Caravedilol Can You Climb a Flight of Stairs Without Yes SOB Hx Chest Pain No Hx SOB No Hx Syncope or Dizziness No Anti-Coagulant Therapy No Has a In Flight Refueling Craftsman Yes: Dr. Pendleton - visit Cardiac Testing Yes: Nuc perf scan 06/18/21 Hx Pacemaker/ICD No Pacemaker Rep Required? No Cardiac Clearance Received Yes Comment Cardiac records put in surgery folder for dos Diet Type At Home Regular dysphagia No Gastrointestinal Symptoms Reflux Bladder Pattern Incontinent Urinary Catheter Present No Hx Urinary Self Catheterization No Diabetes Yes HgbA1C 8.1 Comment Per patient approx less than 6 months ago Patient No Lactating No Hx Drug Resistant Organism No Presence of External or Internal Medical Yes: Bilat eye IOLs, hearing Devices aids Have you had any close contact with No someone diagnosed with COVID-19? Received a COVID vaccine? Yes Received all doses? Yes Marital Status Lives With spouse Prior Living Arrangements House Number of Floors (Floors) One Floor Support System Spouse Does the Patient Have Assistance After Yes Surgery Patient Discharge Plan Description Return Home Comment Pt not advised on length of stay per surgeon Feels Safe in Current Environment Yes Been Physically Hurt or Threatened By a No Person in Current Environment Do you have thoughts of harming yourself None or others? Are you currently considering suicide? No Do you have a plan to hurt yourself or No Plan others? Do You Have Any Spiritual Beliefs That No May Affect Your HC Choices? Do You Have Any Cultural Practices That No May Affect Your HC Choices? Comment Denominational Who Can We Speak to About Patient's Care Family, friends Identifying Code for Release of Patient Declines to issue Information Health Care Proxy/Next of Kin Kishor () Health Care Proxy cell: Emergency Contact Name Kishor Babin Emergency Contact Advance Directives? No Advance Directives on File No Power of Kiss Mixer Yes Power of Kiss Mixer Name Kishor Babin Power of Kiss Mixer PAC Instructions Diabetes instructions,Durable medical equipment,Medications to take/avoid,Nasal antibiotic ,No ETOH/petroleum product on skin DOS,NPO,Post-op transportation,Pre-surgical wash,Sensory aids,Sturdy shoes /comfortable clothes,Do not bring valuables and remove jewelry
[2021-07-15] MEDS: METFORMIN HCL 500 MG TABLET PO (18:30)
[2021-07-15] MEDS: glipiZIDE 5 MG TABLET 10 MG PO (20:36)
[2021-07-15] MEDS: ATORVASTATIN 20 MG TABLET 80 MG PO (20:37)
[2021-07-15] MEDS: PANTOPRAZOLE DR 20 MG TABLET PO (20:38)
[2021-07-15] MEDS: HYDROMORPHONE 2 MG TABLET PO (23:22)
[2021-07-16 03:00] VITALS: BP 136/46; PULSE 70; RESP 20; TEMP 36.7; O2SAT 98
[2021-07-16] MEDS: hydrOXYzine pamoate 25 MG CAPSULE PO (05:35)
[2021-07-16] MEDS: OXYCODONE IR 10 MG TABLET PO (05:36)
[2021-07-16] MEDS: CEFAZOLIN 2 GM/20 ML SYRINGE IV ×2 (06:00→14:13)
[2021-07-16] MEDS: PANTOPRAZOLE DR 20 MG TABLET PO ×2 (06:00→21:22)
[2021-07-16] MEDS: HYDROMORPHONE 2 MG TABLET PO ×3 (07:34→21:00)
[2021-07-16 07:53] VITALS: BP 143/54; PULSE 77; RESP 18; TEMP 37.6; O2SAT 93
[2021-07-16] MEDS: polyethylene glycoL 3350 17 GM POWD.PACK PO (09:07)
[2021-07-16 09:08] VITALS: BP 148/56; PULSE 75
[2021-07-16] MEDS: carvediloL 3.125 MG TABLET 6.25 MG PO ×2 (09:08→21:07)
[2021-07-16] MEDS: glipiZIDE 5 MG TABLET 10 MG PO ×2 (09:08→21:18)
[2021-07-16] MEDS: LOSARTAN 25 MG TABLET 75 MG PO (09:08)
[2021-07-16] MEDS: METFORMIN XR 500 MG TABLET 1000 MG PO ×2 (09:08→20:59)
[2021-07-16] MEDS: DOCUSATE 100 MG CAPSULE PO ×2 (09:08→21:02)
[2021-07-16] MEDS: VANCOMYCIN 500 MG in SODIUM CHLORIDE 0.9% 100 ML IV (09:09)
[2021-07-16] MEDS: ASPIRIN EC 81 MG TABLET PO ×2 (09:09→21:02)
[2021-07-16] MEDS: ACETAMINOPHEN 325 MG TABLET 650 MG PO ×3 (09:09→21:01)
--- NOTE | 2021-07-16 09:51 | PM.PNPO.1 ---
Subjective Subjective Date Patient Seen: 07/16/21 Time Patient Seen: 09:51 Interval history: Sitting up in bed. Appears to be comfortable, but c/o more knee pain today than yesterday. PT working with pt, at this time plan remains for her to d/c home with her . Eating and voiding without difficulty. Exam Vital Signs (past 8 hours): - 07/16/21 03:00 07/16/21 07:53 07/16/21 09:08 Temperature 98.0 F 99.7 F H Pulse Rate 70 77 75 Respiratory Rate 20 18 Blood Pressure 136/46 L 143/54 H 148/56 H Pulse Oximetry 98 93 Oxygen Delivery Method Room Air Oxygen Flow Rate 0 Narrative Exam Narrative: 5/5 DF, PF, EHL on right. Very hesitant on exam d/t pain. Sensation to touch intact throughout RLE. Calves soft, compressible, nontender and without palpable cords or masses. Aquacel dressing CDI. Objective Labs Result Diagrams: 07/15/21 04:30 07/14/21 19:35 PFS Medical History (Updated 07/15/21 @ 11:18 by Tiffanie Harris PA-C) Acid reflux Calcium pyrophosphate deposition disease (CPPD) Diabetes Essential hypertension Hearing impaired Hyperlipidemia Hypertension Surgical History (Updated 07/15/21 @ 11:07 by Tiffanie Harris PA-C) History of carpal tunnel surgery of left wrist History of carpal tunnel surgery of right wrist History of hysterectomy (1984) Hx of bilateral cataract extraction Hx of repair of left rotator cuff Hx of repair of right rotator cuff Social History household members: spouse Smoking Status: Former smoker alcohol intake: current Assessment & Plan Post-op Assessment and plan (1) Status post total knee replacement: Assessment and Plan narrative: Continue PT, multimodal pain control, SCDs and ASA for VTE prophylaxis. Plan to d/c home w/ once cultures/PCR final. (2) Calcium pyrophosphate deposition disease (CPPD): Assessment and Plan narrative: She previously had recurrent effusions which did grow a bacteria and underwent an arthroscopic debridement and subsequently was treated with 6 weeks of IV antibiotics.? She has seen Infectious Disease and they feel that she is a candidate for knee arthroplasty but that we should take cultures and sensitivities at time of surgery and send tissue for PCR and then continue her on IV antibiotics (vancomycin 1000mg daily and cefazolin 2000mg a 8 hrs) until we have negative culture and sensitivity and PCR results.?? (3) Acute postoperative anemia due to expected blood loss: Assessment and Plan narrative: Asymptomatic, no intervention needed at this time. (4) Essential hypertension: Assessment and Plan narrative: Continue home meds. (5) Diabetes: Assessment and Plan narrative: Added low-dose SSI to glipizide and metformin. (6) Acid reflux: Assessment and Plan narrative: Continue home meds. Postoperative Procedures: Procedures Operation Date: 07/14/21 14:30 Actual Procedure Side Surgeon p Total Knee Arthroplasty Right Genoveva Cunningham MD Postoperative day: 2
--- NOTE | 2021-07-16 10:40 | PT.IPTN ---
Current Diagnoses Acute posthemorrhagic anemia (07/14/21) Type 2 diabetes mellitus without complications (07/14/21) Essential (primary) hypertension (07/14/21) Gastro-esophageal reflux disease without esophagitis (07/14/21) Other chondrocalcinosis, unspecified site (07/14/21) Unilateral primary osteoarthritis, right knee (07/14/21) Presence of unspecified artificial knee joint (07/14/21) Surgery Performed Operation Date: 07/14/21 14:30 Actual Procedures p Total Knee Arthroplasty(Right) - Genoveva Cunningham MD Physical Therapy Treatment Note M2 PT-IP Current Condition Start: 07/15/21 12:22 Freq: NEEDED Status: Active Protocol: Document 07/15/21 13:33 SP (Rec: 07/15/21 15:21 SP [id number]) Physical Therapy Current Condition Current Condition Evaluation Date 07/15/21 Treatment Diagnosis s/p R TKA ; difficulty in walking Onset Date 07/14/21 M3 PT-IP Subjective Start: 07/15/21 12:22 Freq: NEEDED Status: Active Protocol: Document 07/16/21 10:20 KS (Rec: 07/16/21 12:20 KS [id number]) Subjective Physical Therapy Visit Type Type Treatment Note Visit Start Time 10:20 Visit Stop Time 10:40 Total Visit Minutes 20 Number of LEHR LOADER Visits 2 Physical Therapy Visit Comments Patient Comments Pt agreeable to working with therapy. Increased time to mobilize due to pain today. Therapy Pain Assessment Pain When Pain Assessed During Mobility Pain Present Pain Present Pain Reported Location Right Knee Intensity 6 Scale Used Numeric (0 - 10) Description With Movement Pain Behaviors Facial Grimacing,Guarding, Wincing Pain Management Techniques Apply Cold,Distraction, Modification of Treatment,Re- positioning,Timing of Activity with Medications M4 PT-IP Mobility and Gait Start: 07/15/21 12:22 Freq: NEEDED Status: Active Protocol: Document 07/16/21 10:20 KS (Rec: 07/16/21 12:20 KS [id number]) PT-Bed Mobility Assessment Sit to Supine Sit to Supine Minimal Assistance,1 Person Assistance,Head of Bed Elevated Scooting Scooting to Edge of Bed Standby Assistance Scooting Up and Down in Bed Standby Assistance PT-Transfer Assessment Sit to and From Stand Sit to and from Stand Standby Assistance,1 Person Assistance,Use of Upper Extremities Equipment Transfer Assistive Device Gait Belt,Front Wheeled Walker Orthotic/Prosthetic Devices or Brace: No Transfers Transfer Destination Bed,Toilet Transfer Technique ambulated w/ FWW Transfer Ability Level of Assist Standby Assistance,Contact Guard Assistance,Use of Upper Extremities Comments Mobility Comments Pt in bathroom about to use toilet w/ HEAD DOFFER assisting upon arrival when LEHR LOADER took over. Pt SBA w/ hand rail for stand<> sit on toilet. After voiding, pt SBA for sit<>stand using hand rail. She then ambulated to [facility] w/ FWW. Pt c/o increased knee pain today, but had stable gait w/ FWW. She then requested to get back in bed due to pain and ambulated additional 10 ft to bed. Pt Min A for LE guidance into bed . Reveiwed exercises including ankle pumps, quad sets, heel slides, and SLR. Pt left in bed w/ all needs in reach. Gait Assessment Gait Gait Assistance Required: Contact Guard Assist,1 Person Assist Distance (Feet) 20 Able to Maintain Weight Bearing Status Yes During Gait Assistive Devices Assistive Device Gait Belt,Front Wheeled Walker Orthotic/Prosthetic Devices or Brace: No Gait Deviations General Gait Pattern Antalgic,Decreased Stride Length,Decreased Feet Clearance Factors Limiting Gait Function Factors Limiting Gait Function Decreased Activity Tolerance, Decreased Strength,Limited Range of Motion,Pain Comments Gait Comments Pt limited in gait distance by pain today. Reporting 6/10 pain during ambulation. Stable gait but w/ decreased stride and foot clearance and step to pattern. PT-Balance Assessment Sitting Balance and Reactions Static Sitting Balance Ability Normal Dynamic Sitting Balance Ability Good Standing Balance and Reactions Static Standing Balance Ability Good Dynamic Standing Balance Ability Good Device Used FWW M5 PT-IP Objective Assessments Start: 07/15/21 12:22 Freq: NEEDED Status: Active Protocol: Document 07/15/21 09:20 AB (Rec: 07/15/21 12:36 AB [id number]) Orientation Orientation/Cognition Level of Alertness Alert Orientation Name,Place,Situation Language Function Ability No Deficits Noted Safety Awareness Decreased Safety Awareness Memory Description No Deficits Noted Gross Range of Motion Lower Extremity ROM Impairments R knee flexion: ~ 45 deg R knee extension: ~ 25 deg less to 0 Strength Lower Extremity Strength Assessment Right Impaired Hip 4-/5 Knee 3+/5 Coordination Assessment Gross Coordination Gross Coordination WNL Sensation Assessment Sensation Gross Sensation WNL Muscle Tone Muscle Tone WNL Yes M6 PT-IP Treatment Start: 07/15/21 12:22 Freq: NEEDED Status: Active Protocol: Document 07/16/21 10:20 KS (Rec: 07/16/21 12:20 KS [id number]) Physical Therapy Treatment Exercises Exercises Ankle Pumps,Gluteal Sets,Heel Slides,Straight Leg Raises Education Education Provided Precautions,Weight Bearing Status,Post-Op Packet,Safety Other Treatments Other Treatment Performed Demonstrated use of gait belt to self assist RLE. M7 PT-IP Assessment and Plan Start: 07/15/21 12:22 Freq: NEEDED Status: Active Protocol: Document 07/16/21 10:20 KS (Rec: 07/16/21 12:20 OH [id number]) PT Summary Assessment and Plan Potential Rehabilitation Potential Good Status of Condition at Evaluation Stable Summary Impairments Pain,ROM,Strength,Balance, Coordination,Sensation,Tone, Cognition,Bed Mobility, Transfers,Gait,Activity Tolerance Progress Towards Goals Progressing Toward Goals,Slow Progress due to Pain,Slow Progress due to Medical Issues ,Slow Progress due to Activity Tolerance Assessment Summary Pt SBA for transfers, CGA for ambulation, and Min A for sit< >sup for LE guidance into bed today. Pt experiencing higher level of pain today which limited her mobility. Able to ambulate ~20 ft and complete LE exercises. Pt will benefit from outpatient therapy to improve strength and ROM. Goals Bed Mobility Goal Independent Transfer Goal Independent,Front Wheeled Walker Gait Goal Independent,Front Wheel Walker Gait Distance 200 Other Goals up/down 4 steps L rail ascending SBA Days to Meet Goals 5 Frequency of Treatment Frequency Of Treatment Twice a Day Treatment Plan Physical Therapy Treatment Plan Bed Mobility Training,Transfer Training,Gait Training, Therapeutic Exercise,Balance Retraining,Post Op Education, Discharge Planning,Hot or Cold Pack,Neuromuscular Re-ed, Coordination Retraining,Manual Therapy Other Recommendations and Next Treatment post op ex, transfers, gait w/ Focus FWW. Suggested pt is ok to walk with nursing over the evening if request. Weight Bearing Status Weight Bearing Status Weight Bear as Tolerated Allowed Weight Bearing Amount (enter % RLE WBAT or #) (%) Recommendations To Nursing Amount of Assist Needed 1 Person Assist Discharge Recommendations PT Discharge Recommendations Home with Assistance, Outpatient PT Transportation Needs at Discharge Private Vehicle
[2021-07-16 12:00] VITALS: BP 156/53; PULSE 74; RESP 16; TEMP 36.9; O2SAT 95
[2021-07-16] MEDS: INSULIN REGULAR 100 UNIT/ML 3 ML VIAL SUBCUT ×2 (12:06→16:34)
--- NOTE | 2021-07-16 13:24 | PT.IPTN ---
Current Diagnoses Acute posthemorrhagic anemia (07/14/21) Type 2 diabetes mellitus without complications (07/14/21) Essential (primary) hypertension (07/14/21) Gastro-esophageal reflux disease without esophagitis (07/14/21) Other chondrocalcinosis, unspecified site (07/14/21) Unilateral primary osteoarthritis, right knee (07/14/21) Presence of unspecified artificial knee joint (07/14/21) Surgery Performed Operation Date: 07/14/21 14:30 Actual Procedures p Total Knee Arthroplasty(Right) - Genoveva Cunningham MD Physical Therapy Treatment Note M2 PT-IP Current Condition Start: 07/15/21 12:22 Freq: NEEDED Status: Active Protocol: Document 07/15/21 13:33 SP (Rec: 07/15/21 15:21 SP [id number]) Physical Therapy Current Condition Current Condition Evaluation Date 07/15/21 Treatment Diagnosis s/p R TKA ; difficulty in walking Onset Date 07/14/21 M3 PT-IP Subjective Start: 07/15/21 12:22 Freq: NEEDED Status: Active Protocol: Document 07/16/21 13:04 KS (Rec: 07/16/21 14:20 KS [id number]) Subjective Physical Therapy Visit Type Type Treatment Note Visit Start Time 13:04 Visit Stop Time 13:24 Total Visit Minutes 20 Number of RESTAURANT CASHIER Visits 3 Physical Therapy Visit Comments Patient Comments Pt agreeable to working with therapy. Increased time to mobilize due to pain today. Therapy Pain Assessment Pain When Pain Assessed During Mobility Pain Present Pain Present Pain Reported Location Right Knee Intensity 8 Scale Used Numeric (0 - 10) Description With Movement Pain Behaviors Facial Grimacing,Guarding, Wincing Pain Management Techniques Apply Cold,Distraction, Modification of Treatment,Re- positioning,Timing of Activity with Medications M4 PT-IP Mobility and Gait Start: 07/15/21 12:22 Freq: NEEDED Status: Active Protocol: Document 07/16/21 13:04 KS (Rec: 07/16/21 14:20 KS [id number]) PT-Bed Mobility Assessment Supine to Sit Supine to Sit Standby Assistance Sit to Supine Sit to Supine Standby Assistance,1 Person Assistance,Head of Bed Elevated Scooting Scooting to Edge of Bed Standby Assistance Scooting Up and Down in Bed Standby Assistance PT-Transfer Assessment Sit to and From Stand Sit to and from Stand Standby Assistance,1 Person Assistance,Use of Upper Extremities Equipment Transfer Assistive Device Gait Belt,Front Wheeled Walker Orthotic/Prosthetic Devices or Brace: No Transfers Transfer Destination Bed Transfer Technique ambulated w/ FWW Transfer Ability Level of Assist Standby Assistance,Contact Guard Assistance,Use of Upper Extremities Comments Mobility Comments Pt in bed w/ spouse in room upon arrival and agreeable to ambulation. Pts spouse provided all assist to pt during treatment, however require occasionaly cues for correct gait belt application and guarding techniques. Pt SBA for sup<>sit and scooting EOB. SBA for sit<>stand w/ FWW . Pt then ambulated ~30 ft in room w/ FWW and providing CGA and then requested to return to bed due to 8 reported pain. Pt SBA for sit<>sup using gaitbelt to self assist RLE into bed. Once again reveiwed LE exercises and pt left in bed w / all needs in reach. Gait Assessment Gait Gait Assistance Required: Contact Guard Assist,1 Person Assist Distance (Feet) 30 Able to Maintain Weight Bearing Status Yes During Gait Assistive Devices Assistive Device Gait Belt,Front Wheeled Walker Orthotic/Prosthetic Devices or Brace: No Gait Deviations General Gait Pattern Antalgic,Decreased Stride Length,Decreased Feet Clearance Factors Limiting Gait Function Factors Limiting Gait Function Decreased Activity Tolerance, Decreased Strength,Limited Range of Motion,Pain Comments Gait Comments Pt w/ 10/21 pain during ambulation w/ FWW. Required cues to increase weight bearing through RLE. PT-Balance Assessment Sitting Balance and Reactions Static Sitting Balance Ability Normal Dynamic Sitting Balance Ability Good Standing Balance and Reactions Static Standing Balance Ability Good Dynamic Standing Balance Ability Good Device Used FWW M5 PT-IP Objective Assessments Start: 07/15/21 12:22 Freq: NEEDED Status: Active Protocol: Document 07/15/21 09:20 AB (Rec: 07/15/21 12:36 AB [id number]) Orientation Orientation/Cognition Level of Alertness Alert Orientation Name,Place,Situation Language Function Ability No Deficits Noted Safety Awareness Decreased Safety Awareness Memory Description No Deficits Noted Gross Range of Motion Lower Extremity ROM Impairments R knee flexion: ~ 45 deg R knee extension: ~ 25 deg less to 0 Strength Lower Extremity Strength Assessment Right Impaired Hip 4-/5 Knee 3+/5 Coordination Assessment Gross Coordination Gross Coordination WNL Sensation Assessment Sensation Gross Sensation WNL Muscle Tone Muscle Tone WNL Yes M6 PT-IP Treatment Start: 07/15/21 12:22 Freq: NEEDED Status: Active Protocol: Document 07/16/21 13:04 KS (Rec: 07/16/21 14:20 AK [id number]) Physical Therapy Treatment Exercises Exercises Ankle Pumps,Gluteal Sets,Heel Slides,Straight Leg Raises Education Education Provided Precautions,Weight Bearing Status,Post-Op Packet,Safety Other Treatments Other Treatment Performed Demonstrated use of gait belt to self assist RLE. M7 PT-IP Assessment and Plan Start: 07/15/21 12:22 Freq: NEEDED Status: Active Protocol: Document 07/16/21 13:04 KS (Rec: 07/16/21 14:20 AK [id number]) PT Summary Assessment and Plan Potential Rehabilitation Potential Good Status of Condition at Evaluation Stable Summary Impairments Pain,ROM,Strength,Balance, Coordination,Sensation,Tone, Cognition,Bed Mobility, Transfers,Gait,Activity Tolerance Progress Towards Goals Progressing Toward Goals,Slow Progress due to Pain,Slow Progress due to Medical Issues ,Slow Progress due to Activity Tolerance Assessment Summary Pt requiring SBA to CGA during treatment today. Only able to tolerate 30 ft ambulaton due to increased R knee pain. Her was able to assist her as needed w/ minimal cues. Will continue to progress and mobilize. Pt may go home when medically stable and will benefit from outpatient rehab. Goals Bed Mobility Goal Independent Transfer Goal Independent,Front Wheeled Walker Gait Goal Independent,Front Wheel Walker Gait Distance 200 Other Goals up/down 4 steps L rail ascending SBA Days to Meet Goals 5 Frequency of Treatment Frequency Of Treatment Twice a Day Treatment Plan Physical Therapy Treatment Plan Bed Mobility Training,Transfer Training,Gait Training, Therapeutic Exercise,Balance Retraining,Post Op Education, Discharge Planning,Hot or Cold Pack,Neuromuscular Re-ed, Coordination Retraining,Manual Therapy Other Recommendations and Next Treatment post op ex, transfers, gait w/ Focus FWW. Suggested pt is ok to walk with nursing over the evening if request. Weight Bearing Status Weight Bearing Status Weight Bear as Tolerated Allowed Weight Bearing Amount (enter % RLE WBAT or #) (%) Recommendations To Nursing Amount of Assist Needed 1 Person Assist Discharge Recommendations PT Discharge Recommendations Home with Assistance, Outpatient PT Transportation Needs at Discharge Private Vehicle
[2021-07-16] MEDS: METFORMIN HCL 500 MG TABLET PO (16:36)
[2021-07-16 19:30] VITALS: BP 164/45; PULSE 81; RESP 14; TEMP 37.7; O2SAT 95
[2021-07-16] MEDS: ATORVASTATIN 20 MG TABLET 80 MG PO (21:02)
[2021-07-16 21:07] VITALS: BP 174/53; PULSE 76
[2021-07-16] MEDS: SODIUM CHLORIDE 0.9% FLUSH 10 ML IV (21:07)
[2021-07-17] MEDS: CEFAZOLIN 2 GM/20 ML SYRINGE IV ×2 (01:06→07:01)
[2021-07-17] MEDS: VANCOMYCIN 500 MG in SODIUM CHLORIDE 0.9% 100 ML IV ×2 (01:06→09:48)
[2021-07-17 03:15] VITALS: BP 160/45; PULSE 86; RESP 14; TEMP 37.4; O2SAT 95
[2021-07-17] MEDS: HYDROMORPHONE 2 MG TABLET PO ×3 (03:25→09:56)
[2021-07-17] MEDS: hydrOXYzine pamoate 25 MG CAPSULE PO (03:26)
[2021-07-17 07:00] VITALS: BP 188/44; PULSE 92; RESP 18; TEMP 36.9; O2SAT 98
[2021-07-17] MEDS: PANTOPRAZOLE DR 20 MG TABLET PO (07:01)
[2021-07-17 08:44] VITALS: BP 184/62; PULSE 82; RESP 18; TEMP 37.5; O2SAT 95
[2021-07-17 09:22] LABS: Vancomycin Trough 11.4 ug/mL (10-20)
[2021-07-17] MEDS: INSULIN REGULAR 100 UNIT/ML 3 ML VIAL SUBCUT (09:38)
[2021-07-17] MEDS: ACETAMINOPHEN 325 MG TABLET 650 MG PO (09:47)
[2021-07-17] MEDS: DOCUSATE 100 MG CAPSULE PO (09:47)
[2021-07-17] MEDS: LOSARTAN 25 MG TABLET 75 MG PO (09:47)
[2021-07-17] MEDS: ASPIRIN EC 81 MG TABLET PO (09:48)
[2021-07-17] MEDS: glipiZIDE 5 MG TABLET 10 MG PO (09:48)
[2021-07-17] MEDS: carvediloL 3.125 MG TABLET 6.25 MG PO (09:48)
[2021-07-17] MEDS: METFORMIN XR 500 MG TABLET 1000 MG PO (09:48)
[2021-07-17] MEDS: VANCOMYCIN TROUGH 1 REQUEST MISC (09:49)
[2021-07-17] MEDS: SODIUM CHLORIDE 0.9% FLUSH 10 ML IV (09:51)
--- NOTE | 2021-07-17 10:39 | P.DS_ITS ---
History of Present Illness History of Present Illness Date Patient Seen: 07/17/21 Time Patient Seen: 10:40 Chief complaint: RT TKA 07/14 *OPB* Narrative: Operative Date/Time/Diagnoses Date of procedure: 07/14/21 Time of procedure: 14:50 Pre-op diagnosis: Right total knee arthroplasty Post-op diagnosis: same Procedure & Clinicians Procedure: Right total knee arthroplasty Same procedure as scheduled: Yes Indications: The patient has had progressively worsening right knee pain with radiographic changes consistent with arthritis.? She has a very complicated past history.? She has a history of recurrent effusions and probable CPPD.? She previously had recurrent effusions which did grow a bacteria and underwent an arthroscopic debridement and subsequently was treated with 6 weeks of IV antibiotics.? She has seen Infectious Disease and they feel that she is a candidate for knee arthroplasty but that we should take cultures and sensitivities at time of surgery and send tissue for PCR and then continue her on IV antibiotics until we have negative culture and sensitivity and PCR results.? We have had a very extensive discussion on multiple multiple occasions.? She is also a diabetic who is poorly controlled but has gotten that under control.? Risk for ongoing infection or recurrent infection was discussed in detail.? As well as concerns about periprosthetic joint effusion and the severity of that problem.? It is ab out 18 months that she has been having ongoing symptoms and she has had no evidence of infection and multiple negative aspirations and is now brought to the operating room for a right total knee arthroplasty.? Non-operative management has failed and the patient has requested total knee replacement. The risks, benefits and alternatives to surgery were discussed with the patient prior to proceeding. Risks discussed included, but were not limited to, failure to relieve pain, stiffness, infection, nerve damage, deep venous thrombosis, pulmonary embolism, stroke, coma, heart attack, permanent paralysis and , as well as the potential need for eventual revision of the prosthetic. Surgeon: Genoveva Cunningham School Janitor: Tiffanie Harris Anesthesia Type: General and Spinal Operative Notes Findings: Thickened synovium, no obvious osteomyelitis, good stability, good bone some osteoarthritic change and synovitis without severe panus Closure Type: primary Specimen(s): other (Tissue for PCR) Prosthetic devices, grafts, tissues, transplants, or devices: [employer] BCS 2 size 5 femur, size 3 tibia, +9 poly, 35 x 7.5 mm patella Estimated Blood Loss (mL): 250 Blood products transfused: none Tourniquet time (min): 80 Discharge Providers Provider Date of admission: 07/14/21 12:17 Discharge Date: 07/17/21 Primary care physician: Nai Victor PA-C Consults: 07/14/21 12:30 Consult to Anesthesiology Routine Comment: Consulting Provider: Anesthesiologist Reason for consultation: Regional block for post operative pain control 07/14/21 17:10 Consult to Discharge Planning Routine Comment: Consult to Physical Therapy Evaluate & Treat Comment: Physician Instructions: postop TKA protocol Consult to Respiratory Therapy Evaluate & Treat Comment: Physician Instructions: Evaluate and treat Discharge provider: Tiffanie Harris PA-C Summary Hospital Course Discharge Diagnosis: s/p RIGHT total knee arthroplasty CPPD Acute anemia d/t expected surgical blood loss DM HTN GERD Hospital Course: Ms Babin's hospital course was unremarkable. On POD# 3, she was feeling well and wanted to go home. She was evaluated by PT throughout her stay. She was eating and voiding without difficulty, and her pain was moderately controlled with oral medication. Exam Vital Signs (past 8 hours): - 07/17/21 03:15 07/17/21 07:00 07/17/21 08:44 Temperature 99.3 F 98.5 F 99.5 F Pulse Rate 86 92 H 82 Respiratory Rate 14 18 18 Blood Pressure 160/45 H 188/44 H 184/62 H Pulse Oximetry 95 98 95 Oxygen Delivery Method Room Air Oxygen Flow Rate 0 Narrative Exam Narrative: Pt hesitant w/ physical exam, but 5/5 DF, PF, EHL on right. Sensation to light touch intact throughout BLE. Calves soft, compressible, nontender and without palpable cords or masses. Aquacel dressing CDI. Objective Labs Result Diagrams: 07/15/21 04:30 07/14/21 19:35 Labs: Laboratory Results - last 24 hr 07/17/21 08:47 Vancomycin Trough 11.4 PFSH Medical History (Updated 07/15/21 @ 11:18 by Tiffanie Harris PA-C) Acid reflux Calcium pyrophosphate deposition disease (CPPD) Diabetes Essential hypertension Hearing impaired Hyperlipidemia Hypertension Surgical History (Updated 07/15/21 @ 11:07 by Tiffanie Harris PA-C) History of carpal tunnel surgery of left wrist History of carpal tunnel surgery of right wrist History of hysterectomy (1984) Hx of bilateral cataract extraction Hx of repair of left rotator cuff Hx of repair of right rotator cuff Social History household members: spouse Smoking Status: Former smoker alcohol intake: current Discharge Assessment & Plan Assessment and Plan Assessment: s/p RIGHT total knee arthroplasty CPPD Acute anemia d/t expected surgical blood loss DM HTN GERD Plan of Treatment: Discharge home, multimodal pain control, outpt PT, ASA 81 mg BID for VTE prophylaxis. Aerobic cxs w/ no growth, anaerobic preliminarily no growth, PCR at for bacteria, fungi, and AFB still pending and will be until at least next week. Will discharge on cephalexin x 7 days and change as needed based on final results. Discharge Plan Discharge Plan Patient Disposition: Home Discharge orders & Medications Prescriptions: New acetaminophen 325 mg Tablet 650 mg PO TID Qty: 1 0RF aspirin 81 mg Tablet,Delayed Release (Dr/Ec) 81 mg PO BID Qty: 1 0RF docusate sodium 100 mg Capsule 100 mg PO BID PRN (Reason: constipation) Qty: 1 0RF hydroxyzine pamoate 25 mg Capsule 25 mg PO Q6HR PRN (Reason: muscle spasm) Qty: 120 1RF oxycodone 5 mg Tablet 5 mg PO Q3HR PRN (Reason: pain, severe) Qty: 60 0RF cephalexin 500 mg tablet 500 mg PO Q8H Qty: 21 0RF Rx Instructions: First dose before bed on 07/17/2021. Continued metformin 500 mg Tablet 500 mg PO QPM 0RF Label Comments: Pt takes additional 500mg with dinner losartan 50 mg tablet 50 mg PO DAILY 0RF ascorbic acid (vitamin C) 1,000 mg Tablet 1,000 mg PO DAILY 0RF calcium carbonate [Antacid (calcium carbonate)] 200 mg calcium (500 mg) Tablet,Chewable 200 mg PO BID PRN (Reason: GI Upset) 0RF cyanocobalamin (vitamin B-12) 500 mcg Tablet 500 mcg PO DAILY 0RF ferrous sulfate 325 mg (65 mg iron) Tablet 325 mg PO DAILY 0RF glipizide 10 mg Tablet 10 mg PO BID 0RF insulin glargine 100 unit/mL (3 mL) Insulin Pen See Rx Instructions .ROUTE .COMPLEX 0RF Rx Instructions: Pt takes glargine insulin based on blood sugar readings. May take once or twice daily based on blood sugar readings. losartan 25 mg Tablet 75 mg PO DAILY 0RF metformin 500 mg Tablet Extended Release 24 Hr 1,000 mg PO BID 0RF therapeutic multivitamin Tablet 1 tab PO DAILY 0RF vitamin A-vitamin C-vit E-min Tablet 1 tab PO DAILY 0RF omeprazole 20 mg Capsule,Delayed Release(Dr/Ec) 20 mg PO BID 0RF atorvastatin 80 mg Tablet 80 mg PO BEDTIME 0RF cholecalciferol (vitamin D3) [Vitamin D3] 25 mcg (1,000 unit) Capsule 25 mcg PO DAILY 0RF carvedilol [Coreg] 6.25 mg Tablet 6.25 mg PO BID 0RF Lactobacill 46-B.animal-inulin 10 billion cell -100 mg Capsule 1 cap PO DAILY 0RF Discontinued acetaminophen 325 mg tablet 650 mg PO DAILY PRN (Reason: Pain) 0RF Follow up/Referrals: Nai Victor PA-C [Primary Care Provider] - Genoveva Cunningham MD [Physician] - As previously scheduled (Follow up with Dr Cunningham on 07/30/2021 @ 2:00 pm at [facility] office in [place]) Diet/Activity/Treatments Diet: Diet as Tolerated Activity: Walk frequently! Cold/Heat Therapy: Ice to knee as needed for pain. Skin/Wound/Dressing Care Dressing: May remove JEFFRY wrap and shower on July 17. Leave Aquacel dressing in place until follow up visit in office. No bathing or otherwise soaking incision. Call the office if dressing becomes saturated inside. Visit Report/Discharge Packet Instructions: DI for Knee Replacement, DI for Prescription Opioid Use Stand Alone Forms: Surgery Discharge Discharge Data Primary Care Provider: Nai Victor
--- NOTE | 2021-07-17 10:48 | PT.IPTN ---
Current Diagnoses Acute posthemorrhagic anemia (07/14/21) Type 2 diabetes mellitus without complications (07/14/21) Essential (primary) hypertension (07/14/21) Gastro-esophageal reflux disease without esophagitis (07/14/21) Other chondrocalcinosis, unspecified site (07/14/21) Unilateral primary osteoarthritis, right knee (07/14/21) Presence of unspecified artificial knee joint (07/14/21) Surgery Performed Operation Date: 07/14/21 14:30 Actual Procedures p Total Knee Arthroplasty(Right) - Genoveva Cunningham MD Physical Therapy Treatment Note M2 PT-IP Current Condition Start: 07/15/21 12:22 Freq: NEEDED Status: Active Protocol: Document 07/15/21 13:33 SP (Rec: 07/15/21 15:21 SP [id number]) Physical Therapy Current Condition Current Condition Evaluation Date 07/15/21 Treatment Diagnosis s/p R TKA ; difficulty in walking Onset Date 07/14/21 M3 PT-IP Subjective Start: 07/15/21 12:22 Freq: NEEDED Status: Active Protocol: Document 07/17/21 10:31 KS (Rec: 07/17/21 11:44 KS [id number]) Subjective Physical Therapy Visit Type Type Treatment Note Visit Start Time 10:31 Visit Stop Time 10:48 Total Visit Minutes 17 Number of ENGINE REPAIRER SERVICE Visits 4 Physical Therapy Visit Comments Patient Comments Pt agreeable to working with therapy. Therapy Pain Assessment Pain When Pain Assessed During Mobility Pain Present Pain Present Pain Reported Location Right Knee Intensity 6 Scale Used Numeric (0 - 10) Description With Movement Pain Behaviors Facial Grimacing,Guarding, Wincing Pain Management Techniques Distraction,Elevation, Modification of Treatment,Re- positioning,Timing of Activity with Medications M4 PT-IP Mobility and Gait Start: 07/15/21 12:22 Freq: NEEDED Status: Active Protocol: Document 07/17/21 10:31 KS (Rec: 07/17/21 11:44 KS [id number]) PT-Bed Mobility Assessment Supine to Sit Supine to Sit Standby Assistance Sit to Supine Sit to Supine Standby Assistance,1 Person Assistance,Head of Bed Elevated Scooting Scooting to Edge of Bed Standby Assistance Scooting Up and Down in Bed Standby Assistance PT-Transfer Assessment Sit to and From Stand Sit to and from Stand Standby Assistance,1 Person Assistance,Use of Upper Extremities Equipment Transfer Assistive Device Gait Belt,Front Wheeled Walker Orthotic/Prosthetic Devices or Brace: No Transfers Transfer Destination Bed Transfer Technique ambulated w/ FWW Transfer Ability Level of Assist Standby Assistance,Contact Guard Assistance,Use of Upper Extremities Comments Mobility Comments Pt in bed upon arrival and agreeable to therapy but remains apprehensive due to pain. SBA for sup<>sit and scooting EOB and SBA to CGA for sit<>Stand and ambulation w/ FWW. Limited due to pts IV leaking down arm and hand. Pt demonstrated good se of FWW, but needed min cues to put mor weight through RLE. Pt recalls how to safely ascend and descend stairs and feels confident her can assist when needed. Pt returned to bed SBA, reviewed LE exercises and safety. Pt left in bed w/ RN in room addressing IV. Gait Assessment Gait Gait Assistance Required: Standby Assistance,Contact Guard Assist Distance (Feet) 50 Able to Maintain Weight Bearing Status Yes During Gait Assistive Devices Assistive Device Gait Belt,Front Wheeled Walker Orthotic/Prosthetic Devices or Brace: No Gait Deviations General Gait Pattern Antalgic,Decreased Stride Length,Decreased Feet Clearance Factors Limiting Gait Function Factors Limiting Gait Function Decreased Activity Tolerance, Decreased Strength,Limited Range of Motion,Pain Comments Gait Comments Required cues to increase weight bearing through RLE. Stair Climbing Assessment Comments Stair Climbing Comments Did not assess as pt has alread completed stair and caregiver training. PT-Balance Assessment Sitting Balance and Reactions Static Sitting Balance Ability Normal Dynamic Sitting Balance Ability Good Standing Balance and Reactions Static Standing Balance Ability Good Dynamic Standing Balance Ability Good Device Used FWW M5 PT-IP Objective Assessments Start: 07/15/21 12:22 Freq: NEEDED Status: Active Protocol: Document 07/15/21 09:20 AB (Rec: 07/15/21 12:36 AB [id number]) Orientation Orientation/Cognition Level of Alertness Alert Orientation Name,Place,Situation Language Function Ability No Deficits Noted Safety Awareness Decreased Safety Awareness Memory Description No Deficits Noted Gross Range of Motion Lower Extremity ROM Impairments R knee flexion: ~ 45 deg R knee extension: ~ 25 deg less to 0 Strength Lower Extremity Strength Assessment Right Impaired Hip 4-/5 Knee 3+/5 Coordination Assessment Gross Coordination Gross Coordination WNL Sensation Assessment Sensation Gross Sensation WNL Muscle Tone Muscle Tone WNL Yes M6 PT-IP Treatment Start: 07/15/21 12:22 Freq: NEEDED Status: Active Protocol: Document 07/17/21 10:31 KS (Rec: 07/17/21 11:44 KS [id number]) Physical Therapy Treatment Exercises Exercises Ankle Pumps,Gluteal Sets,Heel Slides,Straight Leg Raises Education Education Provided Precautions,Weight Bearing Status,Post-Op Packet,Safety M7 PT-IP Assessment and Plan Start: 07/15/21 12:22 Freq: NEEDED Status: Active Protocol: Document 07/17/21 10:31 KS (Rec: 07/17/21 11:44 KS [id number]) PT Summary Assessment and Plan Potential Rehabilitation Potential Good Status of Condition at Evaluation Stable Summary Impairments Pain,ROM,Strength,Balance, Coordination,Sensation,Tone, Cognition,Bed Mobility, Transfers,Gait,Activity Tolerance Progress Towards Goals Progressing Toward Goals,Slow Progress due to Pain,Slow Progress due to Medical Issues ,Slow Progress due to Activity Tolerance Assessment Summary Pt continues to require SBA to CGA throughout treatment. Able to tolerate 50 ft ambulation w/ FWW w/ occasional cues to increase wb on RLE. Pt states she feels safe to go home w/ providing assistance and has good awareness of stair safety and sequencing. She will benefit from outpatient therapy to improve strength and ROM. Goals Bed Mobility Goal Independent Transfer Goal Independent,Front Wheeled Walker Gait Goal Independent,Front Wheel Walker Gait Distance 200 Other Goals up/down 4 steps L rail ascending SBA Days to Meet Goals 5 Frequency of Treatment Frequency Of Treatment Twice a Day Treatment Plan Physical Therapy Treatment Plan Bed Mobility Training,Transfer Training,Gait Training, Therapeutic Exercise,Balance Retraining,Post Op Education, Discharge Planning,Hot or Cold Pack,Neuromuscular Re-ed, Coordination Retraining,Manual Therapy Other Recommendations and Next Treatment post op ex, transfers, gait w/ Focus FWW. Suggested pt is ok to walk with nursing over the evening if request. Weight Bearing Status Weight Bearing Status Weight Bear as Tolerated Allowed Weight Bearing Amount (enter % RLE WBAT or #) (%) Recommendations To Nursing Amount of Assist Needed 1 Person Assist Discharge Recommendations PT Discharge Recommendations Home with Assistance, Outpatient PT Transportation Needs at Discharge Private Vehicle
--- NOTE | 2021-07-17 12:13 | PC.NURSE ---
Day shift: Paperwork signed and all questions answered. Pt has all personal belongings. scripts sent electronic to Pt's pharmacy. Pt's spouse in room for teachings. Dressing/Aquacel remains CDI. Pt taken to car via WC by [facility] [place]. Spouse is driving Pt home and will be her primary caregiver during her recovery. Left unit at approx 1220.
== END 2021-07-17 12:15 | disposition home or self-care (01) | DRG 470 ==
LOC: OR 12:19 → AC 07-15 08:34
PROVIDERS: Admitting Provider Orthopaedic Surgery; PCP Physician Assistant; Referring Provider Orthopaedic Surgery; Visit Provider Orthopaedic Surgery
PROC: 0SRC0JZ Replacement of Right Knee Joint with Synthetic Substitute, Open Approach (ICD-10-PCS; CPT 27447; principal; 2021-07-14 14:30)
DX: M00.061 Staphylococcal arthritis, right knee (principal); B95.8 Unspecified staphylococcus as the cause of diseases classified elsewhere; M17.5 Other unilateral secondary osteoarthritis of knee; M11.261 Other chondrocalcinosis, right knee; M65.9 Synovitis and tenosynovitis, unspecified; M71.21 Synovial cyst of popliteal space [Baker], right knee; E11.9 Type 2 diabetes mellitus without complications; I10 Essential (primary) hypertension; K21.9 Gastro-esophageal reflux disease without esophagitis; E78.5 Hyperlipidemia, unspecified; Z79.4 Long term (current) use of insulin; Z79.84 Long term (current) use of oral hypoglycemic drugs; Z20.822 Contact with and (suspected) exposure to COVID-19; Z87.891 Personal history of nicotine dependence; D62 Acute posthemorrhagic anemia
CPT/HCPCS: 27447; 36415; 73560; 80202; 82565; 82962; 85014; 85018; 85025; 87070; 87075; 87176; 87205; 87635; 87801; 89051; 97110; 97116; 97161; 97530; C1776; C9803; G0378; C9290; J0171; J0690; J1100; J2250; J2274; J2405; J2704; J3010; J3370

== ENCOUNTER → 2023-02-15 13:55 | Outpatient (CLI) | payer OTHER, SELFPAY ==
[2021-07-14 20:42] VITALS: BMI 23.8
[2023-02-15 15:01] LABS: Bilirubin Urine UA NEGATIVE (NEGATIVE); Color Urine UA YELLOW; Glucose Urine UA TRACE g/dL (Negative); Ketones Urine UA TRACE (NEGATIVE); Leukocyte Esterase Urine UA NEGATIVE (NEGATIVE); Nitrite Urine UA NEGATIVE (Negative); Occult Blood Urine UA NEGATIVE (Negative); Protein Urine UA TRACE (Negative)
[2023-02-15 15:03] LABS: Appearance Urine UA SL CLOUDY
[2023-02-15 15:39] LABS: Bacteria Urine None Seen; Culture Indicated Urine Cult Not Indicated; RBC Urine None Seen (0-5/HPF); Squamous Epithelial Cell Urine 0-1 /HPF (0-5/HPF); WBC Urine 0-1/HPF (0-5/HPF)
[2023-02-15 15:50] LABS: Add Manual Diff / Slide Review NO; Basophils Absolute Auto 100 /uL (0-100); Basophils Percent Auto 0.4 % (0-2); Eosinophils Absolute Auto 100 /uL (0-450); Eosinophils Percent Auto 0.6 % (2-4); Hematocrit 29.2 % (36-46); Hemoglobin 9.6 g/dL (12.0-16.0); Lymphocytes Absolute Auto 1800 /uL (1100-4500); Lymphocytes Percent Auto 14.9 % (25-40); Mean Corpuscular HGB Conc 32.8 % (30-36); Mean Corpuscular Hemoglobin 27.8 PG (26-34); Mean Corpuscular Volume 84.8 fL (80-100); Monocytes Absolute Auto 900 /uL (0-900); Monocytes Percent Auto 7.2 % (3-14); Neutrophils Absolute Auto 9200 /uL (1500-7000); Neutrophils Percent Auto 76.9 % (50-75); Platelet Count 594 X10^3/uL (150-400); Red Blood Cell Count 3.44 X10^6/uL (4.0-5.2)
[2023-02-15 16:13] LABS: BUN Creatinine Ratio 25.9 (6-22); Blood Urea Nitrogen 29 mg/dL (7-17); Calcium 10.6 mg/dL (8.4-10.2); Carbon Dioxide 30 mmol/L (22-32); Chloride 95 mmol/L (98-107); Estimated Glomerular Filt Rate 50 mL/min (>60); Glucose 312 mg/dL (80-110); HEMOLYSIS < 15 (0-50); Potassium 5.2 mmol/L (3.4-5.1); Sodium 134 mmol/L (137-145)
== END ==
PROVIDERS: PCP Physician Assistant; Referring Provider Orthopaedic Surgery; Visit Provider Orthopaedic Surgery
DX: Z01.818 Encounter for other preprocedural examination (principal); Z01.812 Encounter for preprocedural laboratory examination; N39.0 Urinary tract infection, site not specified
CPT/HCPCS: 36415; 80048; 81001; 85025; 93005

== ENCOUNTER 2023-03-17 06:08 | Day surgery (SDC) | payer OTHER, SELFPAY ==
[2021-07-14 20:42] VITALS: BMI 23.8
[2023-03-08 08:43] VITALS: BMI 22.4
--- NOTE | 2023-03-17 06:00 | DI.RAD.S_ITS ---
PROCEDURE: XR SHOULDER LT 1V INDICATIONS: LEFT TSA TECHNIQUE: 1 views of the shoulder were acquired. COMPARISON: [facility] [place], CR, XR SHOULDER 2+ VIEWS LEFT, 10/12/2022, 11:42. FINDINGS: Evaluation is limited on single AP view. Bones: Left total shoulder arthroplasty hardware is intact with no perihardware lucency to suggest hardware loosening. Anatomic alignment on limited AP view. Mild acromioclavicular joint space narrowing. Coracoclavicular intervals maintained. No suspicious bony lesions. Visualized ribs appear intact. Soft tissues: Expected postsurgical changes about the left shoulder. No suspicious soft tissue calcifications. Left basilar atelectasis. Aortic arch is calcified, indicating atherosclerosis. IMPRESSION: Evaluation is limited on single AP view. Left total shoulder arthroplasty hardware is intact with expected postsurgical changes. Anatomic alignment on limited AP view. Dictated by: Paulina Browning M.D. on 03/17/2023 at 19:13 Approved by: Paulina Browning M.D. on 03/17/2023 at 19:15
[2023-03-17 06:53] VITALS: BP 172/64; PULSE 75; RESP 16; TEMP 36.2; O2SAT 96; BMI 22.4
[2023-03-17] MEDS: ACETAMINOPHEN 325 MG TABLET 975 MG PO (07:06)
[2023-03-17] MEDS: LACTATED RINGERS 1,000 ML 42 ML IV (07:07)
--- NOTE | 2023-03-17 07:41 | PM.PREOP ---
Pre-operative Note Interval Note History & Physical reviewed/Exam performed by Physician: Yes Changes to H&P: No
[2023-03-17] MEDS: CEFAZOLIN 2 GM/100 ML PREMIX 100 ML IV (07:45)
[2023-03-17] MEDS: TRANEXAMIC ACID 1,000 MG VIAL 1000 MG INJ (07:45)
--- NOTE | 2023-03-17 08:24 | SUR.OPER ---
Beach chair with Reggie/Amira shoulder positioner. Lower body on padded OR bed. Head in foam padded head cradle, secured with straps. Non-operative arm secured <90 degrees abduction. PillowS X 2 under knees. Safety belt at thigh. Cloth tape over blanket over lower legs.
[2023-03-17] MEDS: BUPIVACAINE 0.25% (PF) 30 ML, EPINEPHrine 0.15 MG INJ (09:14)
--- NOTE | 2023-03-17 09:22 | P.OP_ITS ---
Operative Date/Time/Diagnoses Date of procedure: 03/17/23 Time of procedure: 09:22 Pre-op diagnosis: Left shoulder crystalline arthropathy Post-op diagnosis: same Procedure & Clinicians Procedure: Left reverse total shoulder arthroplasty Same procedure as scheduled: Yes Indications: This is a 77-year-old female with left shoulder crystalline arthropathy recalcitrant to nonoperative measures including anti-inflammatories, shoulder aspiration, and colchicine. Discussed continued nonoperative management and discussion with wrapper caser versus washout arthroscopically versus shoulder replacement. After long discussion patient and her wished to go with shoulder replacement. Surgeon: Ernie Nicholas [employer] Worker: Tiffanie Harris Click Yes if Unassisted: No Anesthesia Type: General Operative Notes Findings: Findings: Osteoarthritis of the humeral head, intact glenoid cartilage as noted on preoperative imaging and under direct visualization Closure Type: primary Specimen(s): none sent Prosthetic devices, grafts, tissues, transplants, or devices: Tornier implants Base plate: standard 25 mm, +3 mm offset Glenosphere: Standard 36 mm Stem: Perform size 3 Poly: +3 Estimated Blood Loss (mL): 50 Procedure in detail: Patient was seen in the preoperative holding unit. The correct left shoulder was identified and marked with my initials. Again we discussed the risks and benefits of surgery and they wished to go forward with surgery. The patient was brought back to the operating room and placed supine on the operating table. Smooth endotracheal intubation was performed by anesthesia. All prominences were padded and they were placed into the beach chair position. Intravenous antibiotics were given. The left shoulder was then prepped with the standard sterile preparation and draping. A time-out was then performed in my initials were again identified on the correct shoulder. 1 g of IV tranexamic acid was given. A standard deltopectoral incision was made. Skin flaps were made. The cephalic vein was identified and retracted laterally. This was protected throughout the remainder of the case. Sharp dissection was made along the deltoid, subacromial and subcoracoid space to release adhesions. The conjoined tendon was identified and the axillary nerve was palpated and continuous using the tug test. It was protected throughout the remainder of the case. A brown retractor was placed underneath the deltoid muscle and a darach retractor underneath the conjoint tendon. The anterior circumflex artery and associated veins on the lower border of the subscapularis were identified and tied off using 0-Vicryl. The biceps tendon was identified in the bicipital groove. This was released from its sheath, and taken from its origin on the glenoid and tied into the pectoralis tendon for a solid tenodesis. We then began a subscapularis peel. The subscapularis was tagged with an Ethibond suture. A 360 degree circumferential release of the subscapularis was performed with protection of the axillary nerve. The coracohumeral ligament was released at the base of the coracoid. The coracoacromial ligament was left intact. The shoulder was then dislocated. Osteophytes were removed using combination of rongeur and osteotome. The rotator cuff was noted to be intact. An intramedullary guide was used set at version of 30?. Using an oscillating saw a conservative humeral head cut was made. Impaction reamers were reamed up to a size 3 stem with a built-in angle 135?. A neck protector was placed. Attention was then turned to the glenoid. After retracting the humeral head posteriorly a circumferential release was performed of the capsule with protection of the axillary nerve. The labrum was then released starting at the biceps anchor and going around the rim a small amount of triceps was released from the inferior glenoid. A center guide pin was then placed using the guide, followed by Reamer. After adequate cartilage was removed the center drill hole was drilled and measured. The base plate was then implanted and screwed into place. The superior and inferior drill hole was drilled and filled in a nonlocking fashion, followed by anterior holes in locking fashion, the posterior hole was also filled. A 36 standard glenosphere was then selected and screwed into place onto the base plate. Turning back to the humerus, the humeral head was delivered and trialed with a +3 concentric. The arm was taken through range of motion and this was felt to be stable. The trial was then removed and a dilute Betadine wash was then performed with 1 L of sterile saline. Before placing the final implant, drill holes were made in the bicipital groove for the subscapularis repair, and sutures were passed through the drill holes. The final stem was then impacted into the humerus. The shoulder was then reduced and again brought through range of motion and was felt to be stable. The interval was then closed using #2 Ethibond. The subscapularis was then repaired using a modified racking hitch with nice loupes. The deltopectoral interval was then closed with #2 Ethibond. The skin was closed with 2-0 PDS and Monocryl followed by Aquacel dressing. Patient was awoken from anesthesia and brought back to the postoperative recovery unit without issue. They were placed into a sling. Assisting participation: This operation could not have been safely performed (without compromising the technical results or length of the procedure) without the assistance of a skilled operating room surgical technologist. The operating room surgical technologist was medically necessary for proper positioning, retraction and manipulation of instruments, proper exposure, graft prep, and manipulation of tissue. Complications: none Post-operative Condition: stable Disposition: PACU Plan for aftercare: Postoperative instructions: Sling to remain on for 6 weeks. No external rotation past neutral for 6 weeks. Okay for the sling to come off for shower. Okay to shower over the Aquacel dressing. If any water gets underneath the dressing, remove the dressing. First postoperative visit in 2 weeks.
[2023-03-17 09:34] VITALS: BP 119/54; PULSE 75; RESP 18; TEMP 36.3; O2SAT 95
[2023-03-17 09:39] VITALS: BP 123/58; PULSE 73; RESP 14; O2SAT 93
[2023-03-17] MEDS: INSULIN REGULAR 100 UNIT/ML 3 ML VIAL SUBCUT (09:42)
[2023-03-17 09:44] VITALS: BP 134/64; PULSE 72; RESP 12; O2SAT 95
[2023-03-17] MEDS: OXYCODONE IR 5 MG TABLET PO ×2 (09:54→10:32)
[2023-03-17 09:56] VITALS: BP 142/61; PULSE 70; RESP 16; TEMP 36.6; O2SAT 96
[2023-03-17 10:02] VITALS: BP 157/64; PULSE 68; RESP 16; O2SAT 96
[2023-03-17] MEDS: hydrOXYzine 50 MG/ML INJ 25 MG IM (10:06)
== END 2023-03-17 10:36 | disposition home or self-care (01) ==
LOC: OR 06:09 → AC 06:11
PROVIDERS: PCP Physician Assistant; Referring Provider Orthopaedic Surgery; Visit Provider Orthopaedic Surgery
PROC: (CPT 23472; principal; 2023-03-17 07:45)
DX: M19.012 Primary osteoarthritis, left shoulder (principal); G89.18 Other acute postprocedural pain; M11.9 Crystal arthropathy, unspecified
CPT/HCPCS: 23472; 64415; 73020; 82962; C1776; J0171; J0690; J1100; J2405; J2704; J3010; J3410